=== PATIENT | female | born 1995 | race Caucasian/White ===

== ENCOUNTER 2020-07-11 07:01 | Emergency (ER) | payer MEDICAID, SELFPAY ==
--- NOTE | ~2020-07-11 | CT_ITS ---
EXAMINATION: CT ABDOMEN AND PELVIS WITHOUT CONTRAST CLINICAL INFORMATION: Epigastric pain, evaluate for colitis COMPARISON: None TECHNIQUE: Multidetector volumetric imaging was performed from the superior aspect of the liver through the pubic symphysis. Sagittal and coronal reformatted images were obtained on the technologist's workstation. This CT examination was performed using dose optimization techniques as appropriate, variously including the following: *Automated exposure control *Adjustment of mA and/or kV according to patient size (this includes techniques or standardized protocols for targeted exams where dose is matched to indication/reason for exam; i.e. extremities or head) *Use of iterative reconstruction technique DLP: 827 mGy-cm FINDINGS: LUNG BASES: The visualized lung bases are unremarkable. LIVER, GALLBLADDER, AND BILIARY TREE: The liver is normal in size, shape, and attenuation. No focal hepatic lesion or biliary ductal dilatation is present. The gallbladder is unremarkable with no evidence of radiopaque gallstones, gallbladder wall thickening, or obvious pericholecystic inflammatory changes. PANCREAS: Unremarkable. SPLEEN: Unremarkable. ADRENAL GLANDS: Unremarkable. KIDNEYS AND URETERS: The kidneys are normal in size, shape, and attenuation. No hydronephrosis, hydroureter, or calculi seen. No perinephric stranding. BLADDER: Unremarkable. GASTROINTESTINAL TRACT: The stomach and small bowel are not dilated. No pericolonic inflammatory changes. 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 ABDOMINAL WALL: No significant hernia is appreciated. LYMPH NODES: Normal. VASCULAR: Unremarkable. PELVIC VISCERA: The uterus and adnexa are unremarkable. OSSEOUS STRUCTURES: No acute or suspicious osseous abnormality. CT/CT abdomen pelvis wo con IMPRESSION: No acute intra-abdominal or intrapelvic pathology. No evidence for colitis. Postsurgical changes from appendectomy.
--- NOTE | ~2020-07-11 | US_ITS ---
EXAMINATION: US ABDOMEN COMPLETE CLINICAL INFORMATION: Abdominal pain. Evaluate for gallstone.. COMPARISON: Abdomen ultrasound from 08/22/2018 TECHNIQUE: Real-time imaging of the abdominal viscera. FINDINGS: PANCREAS: Normal. ABDOMINAL AORTA: The proximal, mid, and distal segments are normal in caliber. INFERIOR VENA CAVA: Visualized portions are normal. LIVER: Normal. The liver has normal size, contour and echotexture. No focal hepatic lesion or intrahepatic bile duct dilatation. Color Doppler images show normal flow direction in the main portal vein. GALLBLADDER: Normal. The gallbladder is physiologically distended without evidence of stones, sludge, polyps, wall thickening or pericholecystic fluid. COMMON BILE DUCT: Normal in caliber measuring 0.2 cm in diameter. RIGHT KIDNEY: Normal. No hydronephrosis. No renal calculi or focal parenchymal lesions. The kidney measures approximately 12.6 cm in maximum dimension. LEFT KIDNEY: Normal. No hydronephrosis. No renal calculi or focal parenchymal lesions. The kidney measures approximately 11 cm in maximum dimension. SPLEEN: Normal. The spleen measures 9.4 cm in maximum dimension. FREE FLUID: None. US/US abdomen complete IMPRESSION: Normal ultrasound examination of the abdomen. No evidence of cholelithiasis or cholecystitis.
[2020-07-11 07:31] VITALS: BP 136/81; PULSE 68; RESP 16; TEMP 36.6; O2SAT 99; BMI 36.3
--- NOTE | 2020-07-11 07:33 | ED.ABDPAIN ---
HPI - Abdominal Pain General Chief Complaint: General Medical Stated Complaint: ABD PAIN Time Seen by Provider: 07/11/20 07:24 History of Present Illness HPI narrative: This is a 25 years old female presented to the ED with a chief complaint of epigastric abdominal pain, burning in the epigastrium, inability to eat and drink. She has history of anxiety, he had an appendectomy in the past. She denies any diarrhea fever vomiting. Symptoms started about 3 days ago Onset (ago): day(s) (3) Location: epigastric Quality: cramping Radiation: epigastric Associated symptoms: denies other symptoms Related Data Previous Rx's Medication Instructions Recorded omeprazole magnesium [Prilosec] 20 mg PO DAILY #30 ea 07/11/20 Allergies Allergy/AdvReac Type Severity Reaction Status Date / Time ibuprofen [IBUPROFEN] Allergy Intermediate NAUSEA & Unverified 12/25/19 16:27 VOMITING pollen extracts [POLLEN] Allergy Unknown ITCHY EYES Unverified 12/25/19 16:27 Review of Systems Review of Systems Yes all other systems are reviewed and are negative Cardiovascular: Denies chest pain Respiratory: Reports no additional respiratory complaints and Denies chest congestion Gastrointestinal: Denies belching, Denies melena, Denies change in stool character and Denies coffee ground emesis Reports system reviewed and no additional complaints, except as documented Psychiatric: Reports anxiety Physical Exam Vital Signs: Vital Signs: Last Vital Signs Temp 97.7 F 07/11/20 10:13 Pulse 50 07/11/20 10:13 Resp 16 07/11/20 10:13 BP 110/55 L 07/11/20 10:13 Pulse Ox 98 07/11/20 10:13 Body Mass Index 36.3 She looks well she is not in distress she is anxious Const: Orientation/consciousness: oriented to person, oriented to place, oriented to time and patient oriented x3 HENMT: Head: Yes normal to inspection Eyes: General: appearance normal, both eyes and all related structures Neck: Neck: Yes normal visual inspection, Yes full ROM and Yes no lymphadenopathy Chest: Chest palpation & inspection: normal inspection of the chest Resp: Auscultation: clear to auscultation bilaterally Cardio: Jugular venous distension: no JVD Rate: regular rate Rhythm: regular rhythm GI: Palpation (GI): Soft to palpation, not firm, nontender and no guarding Skin: General skin exam: no rashes or lesions noted, elasticity normal and turgor normal Neuro: General: oriented to person, oriented to place, oriented to time and patient oriented x3 Psych: Other: Anxious appearing Course Course Course Narrative: At this time the patient is feeling much better she is tolerating p.o. well a CT scan of the abdomen is negative with ultrasound shows no gallstones labs within normal limit she is okay to be discharged with follow-up with the primary care physician I will send her home on [facility] - Abdominal Pain Lab Data Result diagrams: 07/11/20 07:46 07/11/20 07:46 Labs: Lab Results 07/11/20 07/11/20 07/11/20 Range/Units 07:30 07:46 07:46 WBC 8.5 (4.8-10.8) X10*3/uL RBC 4.86 (4.20-5.50) X10*6/uL Hgb 13.4 (12.0-16.0) g/dl Hct 41.2 (37-47) % MCV 84.8 (80-98) fL MCH 27.6 (27.0-33.0) pg MCHC 32.5 (31.0-35.0) g/dl RDW 12.8 (11.0-16.0) % Plt Count 372 (160-400) X10*3/uL MPV 10.1 (9.4-12.3) fL Immature Gran % (Auto) 0.2 (0.0-0.4) % Neut % (Auto) 74.8 H (45-73) % Lymph % (Auto) 19.6 L (20-40) % Sanders % (Auto) 4.4 (2-11) % Eos % (Auto) 0.5 (0-4) % Baso % (Auto) 0.5 (0-2) % Lymph # (Auto) 1.7 (1.2-4.9) X10*3/uL Sanders # (Auto) 0.4 (0.1-1.2) X10*3/uL Eos # (Auto) 0.0 (0.0-0.4) X10*3/uL Baso # (Auto) 0.0 (0.0-0.2) X10*3/uL Abs Immat Gran (auto) 0.02 (0.00-0.03) X10*3/uL Absolute Neuts (auto) 6.4 (2.0-8.3) X10*3/uL Absolute Nucleated RBC 0.000 (0.0-0.012) X10*3/uL Nucleated RBC % (auto) 0.0 (0.0-0.2) /100WBC Sodium 141 (135-145) mmol/L Potassium 3.9 (3.3-5.1) mmol/L Chloride 107 (96-108) mmol/L Carbon Dioxide 22 (22-29) mmol/L Anion Gap 16 (12-20) BUN 7 L (9-16) mg/dL Creatinine 0.71 (0.5-1.4) mg/dL Estim Creat Clear Calc 136.3 Estimated GFR > 60 Random Glucose 121 H (60-115) mg/dL Calcium 8.9 (8.4-10.2) mg/dL Total Bilirubin 0.7 (0.0-1.0) mg/dL AST 12 (5-31) U/L ALT 12 (0-31) U/L Alkaline Phosphatase 83 (39-117) U/L Total Protein 7.4 (6.5-8.0) g/dL Albumin 4.3 (3.5-5.0) g/dL Lipase 4 L (8-78) U/L Beta HCG, Quant < 2 mIU/mL Urine Color YELLOW Urine Appearance HAZY Urine pH 7.0 (5.0-8.0) Ur Specific [place] 1.025 (1.005-1.025) Urine Protein NEG (NEG-TRACE) MG/DL Urine Glucose (UA) NEG (NEG) MG/DL Urine Ketones 40 (NEG) MG/DL Urine Blood NEG (NEG) Urine Nitrite NEG (NEG) Ur Leukocyte Esterase NEG (NEG) Urine RBC 0 (0) /HPF Urine WBC 0-2 (0-4) /HPF Ur Squamous Epith Cells 1+ /LPF Urine Bacteria NONE /LPF Urine Mucus 1+ /LPF Discharge Plan Discharge Clinical Impression: Vomiting, Epigastric abdominal pain Patient Disposition: Home, Self-Care Instructions: Epigastric Pain (ED) Prescriptions: New Prilosec 10 mg susp,delayed release for recon 20 mg PO DAILY Qty: 30 RF: 0 Referrals: Daniella Rocha MD [Primary Care Provider] - 2 days Starr Velásquez MD [Physician] - 1 week Interventions: ED Discharge Assessment Last Done: 07/11/20 10:51 Discharge Date/Time: 07/11/20 11:00 [facility] Social History Social History Alcohol intake: never Smoking Status: Current some day smoker Use of substances other than those prescribed or required for medical reasons: Yes Substance Use Type: Marijuana Substance Use Frequency: Daily Advance Directives: Yes Advance Directives Information Provided: Yes Advance Directives on File: No
[2020-07-11 07:45] LABS: Glucose Urine UA NEG (NEG); Leukocyte Esterase Urine NEG (NEG); Nitrite Urine NEG (NEG); Specific Gravity - Urine 1.025 (1.005-1.025); Urine Blood NEG (NEG); Urine Ketones 40 MG/DL (NEG); Urine Protein NEG (NEG-TRACE)
[2020-07-11 07:49] LABS: Appearance Urine HAZY; Color Urine YELLOW
[2020-07-11] MEDS: LORazepam 2 MG/ML VIAL 1 MG IVPUSH (07:53)
[2020-07-11 07:55] LABS: Mucus Urine 1+ /LPF; RBC Urine 0 /HPF (0); Squamous Epithelial Cell Urine 1+ /LPF; WBC Urine 0-2 /HPF (0-4)
[2020-07-11] MEDS: 0.9 % Sodium Chloride 1,000 ML 999 ML IVCONT (07:56)
[2020-07-11] MEDS: Famotidine/PF 20 MG/2 ML VIAL IVPUSH (07:56)
[2020-07-11] MEDS: ondansetron HCL 4 MG/2 ML VIAL IVPUSH (08:01)
[2020-07-11 08:04] LABS: MANUAL DIFF FLAG NO
[2020-07-11 08:06] LABS: Basophils Percent Auto 0.5 % (0-2); Eosinophils Percent Auto 0.5 % (0-4); Hematocrit 41.2 % (37-47); Hemoglobin 13.4 g/dl (12.0-16.0); Imm Gran Abs Auto 0.02 X10*3/uL (0.00-0.03); Imm Gran Pct Auto 0.2 % (0.0-0.4); Lymphocytes Absolute Auto 1.7 X10*3/uL (1.2-4.9); Lymphocytes Percent Auto 19.6 % (20-40); Mean Corpuscular HGB Conc 32.5 g/dl (31.0-35.0); Mean Corpuscular Hemoglobin 27.6 pg (27.0-33.0); Mean Corpuscular Volume 84.8 fL (80-98); Mean Platelet Volume 10.1 fL (9.4-12.3); Monocytes Absolute Auto 0.4 X10*3/uL (0.1-1.2); Monocytes Percent Auto 4.4 % (2-11); Neutrophils Absolute Auto 6.4 X10*3/uL (2.0-8.3); Neutrophils Percent Auto 74.8 % (45-73); Platelet Count 372 X10*3/uL (160-400); Red Blood Count 4.86 X10*6/uL (4.20-5.50); Red Cell Distribution Width 12.8 % (11.0-16.0); White Blood Count 8.5 X10*3/uL (4.8-10.8)
[2020-07-11] MEDS: Magnesium Hydrox/Alum Hydrox 30 ML ORAL.SUSP PO (08:23)
[2020-07-11] MEDS: Omeprazole 20 MG CAPSULE.DR PO (08:30)
[2020-07-11 08:34] LABS: Alanine Aminotransferase 12 U/L (0-31); Albumin Level 4.3 g/dL (3.5-5.0); Alkaline Phosphatase 83 U/L (39-117); Anion Gap 16 (12-20); Aspartate Amino Transferase 12 U/L (5-31); Bilirubin Total 0.7 mg/dL (0.0-1.0); Blood Urea Nitrogen 7 mg/dL (9-16); Calcium 8.9 mg/dL (8.4-10.2); Carbon Dioxide 22 mmol/L (22-29); Chloride 107 mmol/L (96-108); Creatinine Clr Calc Pharmacy 136.3; Estimated Glomerular Filt Rate > 60; Glucose Random 121 mg/dL (60-115); Lipase 4 U/L (8-78); Potassium 3.9 mmol/L (3.3-5.1); Sodium 141 mmol/L (135-145); Total Protein 7.4 g/dL (6.5-8.0)
[2020-07-11 08:39] LABS: HCG Quantitative < 2 mIU/mL
[2020-07-11 10:13] VITALS: BP 110/55; PULSE 50; RESP 16; TEMP 36.5; O2SAT 98
== END 2020-07-11 11:00 | disposition home or self-care (01) ==
PROVIDERS: Emergency Provider Emergency Medicine; PCP Internal Medicine
DX: R11.10 Vomiting, unspecified (principal); R10.13 Epigastric pain; F12.90 Cannabis use, unspecified, uncomplicated; F17.200 Nicotine dependence, unspecified, uncomplicated
CPT/HCPCS: 36415; 74176; 76700; 80053; 81001; 83690; 84702; 85025; 96361; 96374; 96375; 99284; 99285; J2060; J2405

== ENCOUNTER 2020-07-28 09:30 | Emergency (ER) | payer MEDICAID, SELFPAY ==
--- NOTE | ~2020-07-28 | XR_ITS ---
EXAMINATION: XR HAND, RIGHT CLINICAL INFORMATION: Trauma, pain COMPARISON: None TECHNIQUE: PA, lateral, and oblique views of the right hand. FINDINGS: There is an oblique fracture involving the neck and head fourth finger middle phalanx extending to the DIP joint. There is no dislocation or destructive process. No significant angulation or displacement on the AP view. There may be mild dorsal angulation on the lateral view. The remainder of the bony structures appear intact. XR/XR hand RT 2V IMPRESSION: Intra-articular fracture neck and head fourth finger middle phalanx. No dislocation.
[2020-07-28 10:54] VITALS: BP 128/65; PULSE 64; RESP 18; TEMP 36.9; O2SAT 99; BMI 36.8
[2020-07-28] MEDS: Acetaminophen 325 MG TABLET 650 MG PO (10:58)
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
== END 2020-07-28 12:17 | disposition home or self-care (01) ==
PROVIDERS: Emergency Provider Emergency Medicine; PCP Internal Medicine
DX: S62.654A Nondisplaced fracture of middle phalanx of right ring finger, initial encounter for closed fracture (principal); W51.XXXA Accidental striking against or bumped into by another person, initial encounter; Y93.89 Activity, other specified; Y92.9 Unspecified place or not applicable; Y99.9 Unspecified external cause status
CPT/HCPCS: 29130; 73120; 99283

== ENCOUNTER 2020-07-29 17:13 | Outpatient (REF) | payer MEDICAID, SELFPAY ==
--- NOTE | ~2020-07-29 | XR_ITS ---
EXAMINATION: XR HAND, RIGHT CLINICAL INFORMATION: Pain COMPARISON: Previous x-ray July 2020 TECHNIQUE: PA, lateral, and oblique views of the right hand. FINDINGS: There is an oblique fracture of the middle phalanx of the fourth finger intra-articular with the DIP joint. Alignment is unchanged. No other fracture is seen. There is surrounding soft tissue swelling. XR/XR hand RT min 3V IMPRESSION: No change in fracture of the middle phalanx of the right fourth finger.
== END 2020-07-29 17:14 | disposition home or self-care (01) ==
LOC: HO.HOSX 17:13
PROVIDERS: Visit Provider Orthopaedic Surgery
DX: Z13.89 Encounter for screening for other disorder (principal)

== ENCOUNTER → 2020-08-02 08:39 | Outpatient (BNVA) | payer MEDICAID, SELFPAY | PROVIDERS: PCP Internal Medicine; Visit Provider Orthopaedic Surgery | DX: S62.624A Displaced fracture of middle phalanx of right ring finger, initial encounter for closed fracture (principal) | CPT/HCPCS: 73130; 99202 ==

== ENCOUNTER 2020-08-05 07:02 | Day surgery (SDC) | payer MEDICAID, SELFPAY ==
[2020-08-05] VITALS (8 sets, daily range): BP systolic 112–129; BP diastolic 44–87; PULSE 56–94; RESP 16–17; TEMP 36.3–36.8; O2SAT 96–99; BMI 35.7
--- NOTE | ~2020-08-05 | FL_ITS ---
EXAMINATION: XR FLUOROSCOPY WITH IMAGES CLINICAL INFORMATION: ORIF right fourth finger fracture COMPARISON: Previous x-ray July 28 and 08/02/2020 TECHNIQUE: Fluoroscopy performed by Dr. Caballero. Fluoroscopy time: 45 seconds DAP: [id number] Images: 6 FINDINGS: There is a an oblique fracture of the middle phalanx. There are 2 K wires or pins seen in the middle and distal phalanx of the fourth finger across the DIP joint. FL/FL guidance in OR IMPRESSION: Fluoroscopic guidance for ORIF of right fourth finger fracture.
[2020-08-05 07:53] LABS: UPreg QC Valid YES
[2020-08-05 07:56] LABS: Urine Pregnancy NEGATIVE (NEGATIVE)
[2020-08-05] MEDS: Lactated Ringers 1,000 ML 50 ML IV (08:20)
--- NOTE | 2020-08-05 09:30 | MHC.SHP ---
Pre-Procedural Eval Section B Chief Complaint: fx right ring finger Allergies: Allergies Allergy/AdvReac Type Severity Reaction Status Date / Time pollen extracts [POLLEN] Allergy Unknown ITCHY EYES Verified 08/02/20 08:42 ibuprofen [IBUPROFEN] AdvReac Mild Heartburn Verified 08/02/20 08:42 Plan I have reviewed the history and physical and performed a pertinent physical examination on my patient. No changes have occurred unless specified.
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
[2020-08-05] MEDS: fentaNYL citrate/PF 100 MCG/2 ML VIAL 25 MCG IVPUSH (10:55)
[2020-08-05] MEDS: Acetaminophen 325 MG TABLET 650 MG PO (10:55)
[2020-08-05] MEDS: oxyCODONE HCl Immed Release 5 MG TABLET PO (10:56)
== END 2020-08-05 12:02 | disposition home or self-care (01) ==
LOC: HO.SSS 07:03
PROVIDERS: Anesthesiology; PCP Internal Medicine; Visit Provider Orthopaedic Surgery
PROC: (CPT 26727; principal; 2020-08-05 09:00)
DX: S62.624A Displaced fracture of middle phalanx of right ring finger, initial encounter for closed fracture (principal); Y04.0XXA Assault by unarmed brawl or fight, initial encounter; Y93.89 Activity, other specified; Y92.9 Unspecified place or not applicable; Y99.8 Other external cause status; Z88.8 Allergy status to other drugs, medicaments and biological substances; F12.90 Cannabis use, unspecified, uncomplicated
CPT/HCPCS: 26727; 81025; J0690; J2250; J2405; J3010

== ENCOUNTER → 2020-08-11 15:12 | Outpatient (BNVA) | payer MEDICAID, SELFPAY | PROVIDERS: PCP Internal Medicine; Visit Provider Orthopaedic Surgery | DX: S62.624D Displaced fracture of middle phalanx of right ring finger, subsequent encounter for fracture with routine healing (principal) | CPT/HCPCS: 99212 ==

== ENCOUNTER 2020-08-31 08:50 | Outpatient (REF) | payer MEDICAID, SELFPAY ==
--- NOTE | ~2020-08-31 | XR_ITS ---
EXAMINATION: XR HAND, RIGHT CLINICAL INFORMATION: Right hand pain. COMPARISON: Most recent right hand radiographs dated 08/02/2020. TECHNIQUE: PA, lateral, and oblique views of the right hand. FINDINGS: Orthopedic pins through the 4th mid and distal phalanx across the previously seen 4th middle phalangeal fracture. Fracture in near-anatomic alignment with interval new bone/callus formation. No hardware fracture. No perihardware lucency to suggest loosening or infection. XR/XR hand RT min 3V IMPRESSION: Orthopedic pins through the 4th middle phalangeal fracture which is in near-anatomic alignment with interval new bone/callus formation. No hardware complication.
== END 2020-08-31 08:51 | disposition home or self-care (01) ==
LOC: HO.HOSX 08:50
PROVIDERS: Visit Provider Orthopaedic Surgery
DX: S62.624A Displaced fracture of middle phalanx of right ring finger, initial encounter for closed fracture (principal)
CPT/HCPCS: 73130; 99212

== ENCOUNTER 2020-10-04 09:32 | Outpatient (REF) | payer MEDICAID, SELFPAY | END 2020-10-04 09:33 | disposition home or self-care (01) | LOC: HO.HOSX 09:32 | PROVIDERS: Visit Provider Orthopaedic Surgery | DX: Z13.89 Encounter for screening for other disorder (principal) ==

== ENCOUNTER 2021-03-05 13:43 | Emergency (ER) | payer MEDICAID, SELFPAY ==
[2021-03-05 13:59] VITALS: BP 115/75; PULSE 72; RESP 18; TEMP 36.6; O2SAT 100; BMI 36.8
--- NOTE | 2021-03-05 14:52 | ED.GENADULT ---
HPI - General Adult General Chief complaint: General Medical Stated complaint: body and head aches exposed to covid Time Seen by Provider: 03/05/21 14:26 Source: patient and family Mode of arrival: ambulatory Limitations: no limitations History of Present Illness MD complaint: COVID exposure Onset (ago): day(s) (2) Severity: mild Quality: aching Pain Consistency: intermittent Relieving factors: none Exacerbating factors: none Associated symptoms: headaches and other (myalgias) Treatments prior to arrival: none Related Data Previous Rx's Medication Instructions Recorded omeprazole magnesium 10 mg oral 20 mg PO DAILY #30 ea 07/11/20 suspension,delayed release (Prilosec) acetaminophen 325 mg capsule 650 mg PO Q6H PRN 7 Days #56 cap 07/28/20 oxycodone-acetaminophen 5 mg-325 1 tab PO Q6H PRN #15 tab 08/05/20 mg tablet Allergies Allergy/AdvReac Type Severity Reaction Status Date / Time pollen extracts [POLLEN] Allergy Unknown ITCHY EYES Verified 08/31/20 12:42 ibuprofen [IBUPROFEN] AdvReac Mild Heartburn Verified 08/31/20 12:42 Review of Systems Review of Systems: Constitutional : no Fever, no Chills, no fatigue, no Malaise ENT/Mouth : no sore throat, positive runny nose Eyes: No Discharge Cardiovascular : No Chest Pain, No SOB Respiratory : No Cough, No Sputum Gastrointestinal : No Nausea, No Vomiting, No Diarrhea Genitourinary : No Dysuria, No Urinary Frequency Musculoskeletal : positive Myalgia Skin : No rash Neuro : No Headache PMFSH Past Medical History Medical History No known health problems Surgical History History of appendectomy Previous section Social History Social History Alcohol intake: never Substance Use Type: Marijuana Advance Directives: No Advance Directives Information Provided: No Patient : No 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 Oriented X3. No acute distress. Eyes: Pupils equal, round and reactive to light. ENT: Pharynx normal. Neck: Normal inspection. Neck supple. CVS: Normal heart rate and rhythm. Pulses normal. Respiratory: No respiratory distress. Breath sounds normal. Abdomen: Soft and non-tender. Skin: Skin warm and dry. Normal skin color. Extremities: No lower extremity edema. Neuro: Oriented X 3. No motor deficit. No sensory deficit. Medical Decision Making MDM Narrative Medical decision making narrative: 25 yo female with body aches and headaches COVID exposure - not toxic, vaccinated x 1 looks well will COVID test and send home with precautions Lab Data Labs: Lab Results 03/05/21 Range/Units 14:44 COVID-19 ([facility]) Negative (Negative) COVID-19 Clin Com See Note Discharge Plan Discharge Clinical Impression: Close exposure to 2019-nCoV Patient Disposition: Home, Self-Care Instructions: COVID-19 (Coronavirus Disease 2019) (ED) Additional Instructions: return to ED for any worsening symptoms or concerns COVID negative today Prescriptions: No Action Prilosec 10 mg susp,delayed release for recon 20 mg PO DAILY Qty: 30 RF: 0 acetaminophen 325 mg capsule 650 mg PO Q6H PRN (Reason: pain) 7 Days Qty: 56 RF: 0 oxycodone-acetaminophen 5-325 mg tablet 1 tab PO Q6H PRN (Reason: pain) Qty: 15 RF: 0 Stand Alone Forms: Work/School Release
[2021-03-05 15:09] LABS: COVID-19 Test Negative (Negative); IDNOW Serial# 9DD0AD1C
== END 2021-03-05 15:36 | disposition home or self-care (01) ==
LOC: HO.ED 15:22
PROVIDERS: Emergency Provider Emergency Medicine; PCP Internal Medicine
DX: R51.9 Headache, unspecified (principal); Z20.822 Contact with and (suspected) exposure to COVID-19
CPT/HCPCS: 36415; 87635; 99283

== ENCOUNTER 2021-03-20 19:37 | Emergency (ER) | payer MEDICAID, SELFPAY ==
--- NOTE | ~2021-03-20 | XR_ITS ---
EXAMINATION: XR FOOT, RIGHT CLINICAL INFORMATION: Toe swelling pain COMPARISON: None TECHNIQUE: AP, lateral, and oblique views of the right foot. FINDINGS: The bones and soft tissues are normal. No fracture. Alignment is anatomic. Joint spaces are maintained. XR/XR foot RT 2V IMPRESSION: Normal right foot.
[2021-03-20 19:59] VITALS: BP 120/69; PULSE 74; RESP 17; TEMP 37.1; O2SAT 100; BMI 35.7
[2021-03-20] MEDS: oxyCODONE HCl Immed Release 5 MG TABLET PO (22:27)
--- NOTE | 2021-03-20 22:45 | ED.LOWEXIN ---
HPI - Extremity Injury (Lower) General Chief Complaint: Extremity Injury, Lower Stated Complaint: ?broken toe rt foot Time Seen by Provider: 03/20/21 21:50 Source: patient Mode of arrival: ambulatory Limitations: no limitations History of Present Illness HPI Narrative: 25-year-old female presents to the ED for right 3rd toe pain. She states yesterday while trying to pull pants on she kicked her foot onto the wall and since then has had pain. Patient denies falling to the ground or any other trauma. Patient states 3rd toe is is bruised Related Data Previous Rx's Medication Instructions Recorded omeprazole magnesium 10 mg oral 20 mg PO DAILY #30 ea 07/11/20 suspension,delayed release (Prilosec) acetaminophen 325 mg capsule 650 mg PO Q6H PRN 7 Days #56 cap 07/28/20 oxycodone-acetaminophen 5 mg-325 1 tab PO Q6H PRN #15 tab 08/05/20 mg tablet oxycodone-acetaminophen 5 mg-325 1 tab PO TID PRN #9 tab 03/20/21 mg tablet (Percocet) Allergies Allergy/AdvReac Type Severity Reaction Status Date / Time pollen extracts [POLLEN] Allergy Unknown ITCHY EYES Verified 03/20/21 20:02 ibuprofen [IBUPROFEN] AdvReac Mild Heartburn Verified 03/20/21 20:02 Review of Systems Review of Systems: Yes all other systems are reviewed and are negative Constitutional: Constitutional: Reports as per HPI and Reports no additional constitutional complaints Eyes: Eyes: Reports as per HPI and Reports no additional eye complaints ENT: Reports system reviewed and no additional complaints, except as documented and Reports as per HPI Cardiovascular: Cardiovascular: Reports as per HPI and Reports no additional cardiovascular complaints Respiratory: Respiratory: Reports as per HPI and Reports no additional respiratory complaints Gastrointestinal: Gastrointestinal: Reports as per HPI and Reports no additional gastrointestinal complaints Genitourinary: Genitourinary: Reports no additional female genitourinary complaints and Reports as per HPI Musculoskeletal: Musculoskeletal: Reports no additional musculoskeletal complaints and Reports as per HPI Comments: Toe pain Neurologic: Reports system reviewed and no additional complaints, except as documented and Reports as per HPI Psychiatric: Psychiatric: Reports no additional psychiatric complaints and Reports as per HPI PMFSH Past Medical History Medical History No known health problems Surgical History History of appendectomy Previous section Social History Social History Alcohol intake: never Substance Use Type: Marijuana Advance Directives: No Advance Directives Information Provided: No 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 Physical Exam Vital Signs: Vital Signs: Last Vital Signs Temp 98.7 F 03/20/21 19:59 Pulse 74 03/20/21 19:59 Resp 17 03/20/21 19:59 BP 120/69 03/20/21 19:59 Pulse Ox 100 03/20/21 19:59 BMI result Body Mass Index 35.7 Const: General: cooperative, healthy appearing, comfortable, no acute distress, well developed, alert, awake and Physically active HENMT: Head: Yes normal to inspection, Yes No palpable skull fracture present, Yes normocephalic, Yes atraumatic and No abrasion Eyes: General: appearance normal, both eyes and all related structures Neck: Neck: Yes normal visual inspection, Yes full ROM, Yes no lymphadenopathy, Yes no meningeal signs, Yes trachea midline, Yes supple, No anterior neck swelling and No tender Chest: Chest palpation & inspection: normal inspection of the chest and normal palpation of entire chest wall Resp: Effort & Inspection: normal respiratory effort and able to speak in complete sentences Auscultation: clear to auscultation bilaterally Cardio: Jugular venous distension: no JVD Heart sounds: S1 normal heart sound present and S2 normal heart sound present GI: Inspection: Yes normal to inspection and No abdominal wall ecchymosis Palpation (GI): Soft to palpation, not firm, nontender, no guarding and not rigid : General: No CVA tenderness and Yes no CVA tenderness Back/Spine/Pelvis: Back: no CVA tenderness, No CVA tenderness and No back tenderness Skin: General skin exam: no rashes or lesions noted and elasticity normal Neuro: General: gait normal, no meningeal signs and CN's II-XI intact bilaterally Cranial nerves: Yes CN's II-XII intact bilaterally Extrem: General: Yes normal to inspection and Yes full ROM Ankle/foot/toe images: 1. Positive for ecchymosis on palpation and tenderness. Rest of right lower extremity normal negative for signs of trauma. Right lower extremity negative for erythema, tenderness, crepitus, deformity, pus discharge, foul odor, or open wounds. Motor/neuro/vascular exam intact Psych: Appearance: grossly normal, well kempt and not disheveled Course Course Course Narrative: X-ray foot ordered Reevaluation(s) Reevaluation #1: Foot x-ray negative for any fracture. Patient placed in postop shoe and discharged with pain meds. Time: 22:49 MDM - Extremity Injury (Lower) MDM Narrative Medical decision making narrative: Toe contusion Discharge Plan Discharge Clinical Impression: Contusion of toe Patient Disposition: Home, Self-Care Instructions: Foot Contusion (ED) Additional Instructions: Return to ED for worsening pain, bluish black discoloration, swelling, redness, fever, chills, calf pain, leg swelling, pus discharge, foul odor, coolness/hardness of lower extremity, or any other concerning symptoms. Please follow-up with primary care provider. Prescriptions: New oxycodone-acetaminophen [Percocet] 5-325 mg tablet 1 tab PO TID PRN (Reason: pain) Qty: 9 RF: 0 No Action Prilosec 10 mg susp,delayed release for recon 20 mg PO DAILY Qty: 30 RF: 0 acetaminophen 325 mg capsule 650 mg PO Q6H PRN (Reason: pain) 7 Days Qty: 56 RF: 0 oxycodone-acetaminophen 5-325 mg tablet 1 tab PO Q6H PRN (Reason: pain) Qty: 15 RF: 0 Stand Alone Forms: Work/School Release Interventions: ED Discharge Assessment Last Done: 03/20/21 23:18 Discharge Date/Time: 03/20/21 23:19 Print Language: Chinese
== END 2021-03-20 23:19 | disposition home or self-care (01) ==
PROVIDERS: Emergency Provider Internal Medicine; PCP Internal Medicine
DX: S90.121A Contusion of right lesser toe(s) without damage to nail, initial encounter (principal); W22.09XA Striking against other stationary object, initial encounter; Y93.89 Activity, other specified; Y92.032 Bedroom in apartment as the place of occurrence of the external cause; Y99.9 Unspecified external cause status
CPT/HCPCS: 73620; 99283; 99284

== ENCOUNTER 2021-09-22 10:59 | Emergency (ER) | payer MEDICAID, SELFPAY ==
--- NOTE | ~2021-09-22 | CT_ITS ---
EXAMINATION: CT ABDOMEN AND PELVIS WITHOUT CONTRAST CLINICAL INFORMATION: Abdominal pain. COMPARISON: CT scan of the abdomen and pelvis dated 07/11/2020. TECHNIQUE: Multidetector volumetric imaging was performed from the superior aspect of the liver through the pubic symphysis. Sagittal and coronal reformatted images were obtained on the technologist's workstation. Lack of intravenous and oral contrast limits visceral evaluation. This CT examination was performed using dose optimization techniques as appropriate, variously including the following: *Automated exposure control *Adjustment of mA and/or kV according to patient size (this includes techniques or standardized protocols for targeted exams where dose is matched to indication/reason for exam; i.e. extremities or head) *Use of iterative reconstruction technique DLP: 901 mGy-cm FINDINGS: LUNG BASES: The visualized lung bases are unremarkable. LIVER, GALLBLADDER, AND BILIARY TREE: Unremarkable. PANCREAS: Unremarkable. SPLEEN: Unremarkable. ADRENAL GLANDS: Unremarkable. KIDNEYS AND URETERS: Left kidney shows an interpolar calculus measuring 0.2 cm densities image 48, series 6). No hydroureteronephrosis bilaterally. BLADDER: Unremarkable. GASTROINTESTINAL TRACT: The stomach and small bowel unremarkable. The appendix appears surgically absent without right lower quadrant abnormality. The colon and rectum are unremarkable. ABDOMINAL WALL: No significant hernia is appreciated. LYMPH NODES: Mildly prominent ileocolic/mesenteric lymph nodes. A claim representative ileocolic lymph node measures 1.0 cm in short axis (image 31, series 6). VASCULAR: Unremarkable. PELVIC VISCERA: Retroverted/retroflexed uterus without focal abnormality. No adnexal abnormality. OSSEOUS STRUCTURES: L5-S1 is transitional with partial sacralization of L5, greater on the right side. Mild disc space narrowing versus rudimentary disc at L5-S1. CT/CT abdomen pelvis wo con IMPRESSION: 1. No acute intra-abdominal/pelvic pain to explain the patient's symptoms. Mildly prominent mesenteric lymph nodes are nonspecific, but could be reactive, but a definitive causative abnormality is not identified. 2. Nonobstructing left intrarenal calculus without other significant abnormality. Fleischner guidelines were followed.
[2021-09-22 11:02] VITALS: BP 133/90; PULSE 77; RESP 22; TEMP 36.8; O2SAT 97; BMI 38.2
--- NOTE | 2021-09-22 11:28 | ED_ITS ---
HPI - General Adult General Chief complaint: Abdominal Pain Stated complaint: lower abd pain Time Seen by Provider: 09/22/21 11:28 Source: patient Mode of arrival: ambulatory Limitations: no limitations History of Present Illness HPI narrative: Patient is a 26 year old female presenting to the emergency department today with low abdominal pain. Patient states that starting yesterday she began to have low abdominal pain that she feels around her scar. Patient states that her was years ago and she has no concern of current because she is thomas. Patient denies any dizziness, lightheadedness, nausea, vomiting, fever, chills, blurry vision, double vision, loss of vision, chest pain, difficulty breathing, shortness of breath, back pain, night sweats, pain with urination, increased urinary frequency, increased urinary urgency, blood in her urine or stool, syncope or a near syncopal episode, recent trauma or falls, bowel incontinence, bladder incontinence, bowel retention, bladder retention, or any other complaints at this time. Patient states that she has had an appe ndectomy. Onset (ago): day(s) (1) Location: abdomen Radiation: abdomen Severity: mild Severity scale (1-10): 3 Quality: dull Pain Consistency: constant Relieving factors: none Exacerbating factors: none Associated symptoms: denies other symptoms Treatments prior to arrival: none Related Data Previous Rx's Medication Instructions Recorded omeprazole magnesium 10 mg oral 20 mg PO DAILY #30 ea 07/11/20 suspension,delayed release (Prilosec) acetaminophen 325 mg capsule 650 mg PO Q6H PRN pain 7 days #56 07/28/20 caps oxycodone-acetaminophen 5 mg-325 1 tab PO Q6H PRN pain #15 tabs 08/05/20 mg tablet oxycodone-acetaminophen 5 mg-325 1 tab PO TID PRN pain #9 tabs 03/20/21 mg tablet (Percocet) Allergies Allergy/AdvReac Type Severity Reaction Status Date / Time pollen extracts [POLLEN] Allergy Unknown ITCHY EYES Verified 03/20/21 20:02 ibuprofen [IBUPROFEN] AdvReac Mild Heartburn Verified 03/20/21 20:02 Review of Systems Constitutional: Constitutional: Reports no additional constitutional complaints, Denies chills, Denies fever(s) and Denies night sweats Eyes: Eyes: Reports no additional eye complaints, Denies blurry vision, Denies change in vision, Denies diplopia, Denies eye discharge, Denies loss of vision and Denies eye pain ENT: Denies dizziness Cardiovascular: Cardiovascular: Reports no additional cardiovascular complaints, Denies chest pain, Denies lightheadedness, Denies Loss of Consciousness and Denies dyspnea Respiratory: Respiratory: Reports no additional respiratory complaints and Denies dyspnea Gastrointestinal: Gastrointestinal: Reports no additional gastrointestinal complaints, Reports abdominal pain, Denies melena, Denies hematochezia, Denies change in bowel habits and Denies change in stool character Genitourinary: Genitourinary: Denies hematuria, Denies urinary frequency, Denies dysuria, Denies urinary incontinence, Denies urinary hesitancy and Denies urinary urgency Musculoskeletal: Musculoskeletal: Reports no additional musculoskeletal complaints, Denies numbness and Denies tingling Neurologic: Denies dizziness, Denies loss of vision, Denies numbness and Denies tingling Psychiatric: Psychiatric: Reports no additional psychiatric complaints Endocrine: Endocrine: Reports no additional endocrine complaints Hematologic/Lymphatic: Hematologic/Lymphatic: Reports no additional hematologic/lymphatic complaints Allergic/Immunologic: Allergic/Immunologic: Reports no additional allergic/immunologic complaints [facility] Past Medical History Attestation statement: The following information was validated with the patient. 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 Physical Exam ED Vital Signs: Vital Signs - 24 hr 09/22/21 11:02 09/22/21 11:40 09/22/21 13:57 Temperature 98.3 F Pulse Rate 77 72 68 Respiratory Rate 22 H 20 16 Blood Pressure 133/90 H 139/89 137/71 Pulse Oximetry 97 99 Oxygen Delivery Method Room Air Room Air Room Air 09/22/21 16:01 Temperature 98.2 F Pulse Rate 60 Respiratory Rate 18 Blood Pressure 140/70 H Pulse Oximetry 98 Oxygen Delivery Method Room Air BMI result Body Mass Index 38.2 Const General: cooperative, no acute distress, alert and awake Nutritional Appearance: well nourished Orientation/consciousness: patient oriented x3 Limitations: no limitations HENMT Head: Yes normal to inspection and Yes atraumatic Ears: hearing grossly normal bilaterally and external ears normal General nose exam: Normal external nose present, no nasal discharge noted and no epistaxis Face and sinus: Yes normal facial exam, No abrasion and No laceration Mouth: Normal oral and palatal mucosa present, no drooling and no muffled voice Eyes General: appearance normal, both eyes and all related structures Periorbital: periorbital findings normal Eyelids: Yes eyelids normal Conjunctivae: conjunctivae normal Pupils: Equal, round and reactive pupils present EOM: EOMs intact bilaterally Neck Neck: Yes normal visual inspection, Yes full ROM and Yes no lymphadenopathy Chest Chest palpation & inspection: normal inspection of the chest Resp Effort & Inspection: normal respiratory effort and able to speak in complete sentences Auscultation: clear to auscultation bilaterally Cardio Rate: regular rate Rhythm: regular rhythm GI Inspection: Yes normal to inspection Palpation (GI): Soft to palpation, not firm, nontender, no guarding and not rigid Neuro General: patient oriented x3 and moves all extremities Cranial nerves: Yes Equal, round and reactive pupils present Cognition (Neuro): normal cognition Motor exam (neuro): 5/5 motor strength present throughout Sensory Exam: Normal double simultaneous stimulation for sensation Coordination: [id number]-ab-[id number] test normal Extrem General: Yes normal to inspection, Yes full ROM and Yes capillary refill normal Psych Appearance: grossly normal Mental Status: mental status grossly normal Affect: normal affect Attitude: cooperative Thought process: Normal thought process present Thought content: Normal thought content present Insight: Good insight present (Psych) Medical Decision Making MDM Narrative Medical decision making narrative: Patient is a 26 year old female presenting to the emergency department today with abdominal pain. Patient's physical exam was unremarkable. Patient's blood work was unremarkable. Patient's urine showed no acute process. Patient's abdominal CT showed no renal calculi. I explained my physical exam findings as well as all test results to the patient. I answered all questions asked by the patient. Patient received IV Morphine and Zofran which she stated helped her symptoms significantly. I stressed the importance of the patient taking her medication as prescribed. I stressed the importance of the patient following up with her primary care provider. I stressed the importance of the patient returning to the emergency department immediately if her symptoms were to worsen or if she were to develop any dizziness, shortness of breath, difficulty breathing, chest pain, blurry vision, loss of vision, nausea, vomiting, abdominal pain, fever, chills, back pain, or any other complaints. Patient verbalized agreement and understanding with this treatment plan and discharge. Differential Diagnosis Differential Diagnosis: renal calculi, abdominal pain Medical Records Medical records reviewed: Yes I reviewed the patient's medical records. Lab Data Lab results reviewed: Yes I reviewed the patient's lab results. Result diagrams: 09/22/21 12:05 09/22/21 12:05 Labs: Lab Results 09/22/21 09/22/21 09/22/21 Range/Units 11:53 11:53 12:05 WBC 9.5 (4.8-10.8) X10*3/uL RBC 5.20 (4.20-5.50) X10*6/uL Hgb 14.3 (12.0-16.0) g/dl Hct 44.2 (37.0-47.0) % MCV 85.0 (80.0-98.0) fL MCH 27.5 (27.0-33.0) pg MCHC 32.4 (31.0-35.0) g/dl RDW 12.8 (11.0-16.0) % Plt Count 358 (160-400) X10*3/uL MPV 9.7 (9.4-12.3) fL Immature Gran % (Auto) 0.3 (0.0-0.4) % Neut % (Auto) 75.9 H (45-73) % Lymph % (Auto) 17.1 L (20-40) % Mccreary % (Auto) 5.9 (2-11) % Eos % (Auto) 0.5 (0-4) % Baso % (Auto) 0.3 (0-2) % Lymph # (Auto) 1.6 (1.2-4.9) X10*3/uL Mccreary # (Auto) 0.6 (0.1-1.2) X10*3/uL Eos # (Auto) 0.1 (0.0-0.4) X10*3/uL Baso # (Auto) 0.0 (0.0-0.2) X10*3/uL Abs Immat Gran (auto) 0.03 (0.00-0.03) X10*3/uL Absolute Neuts (auto) 7.2 (2.0-8.3) x10*3/uL Absolute Nucleated RBC 0.000 (0.0-0.012) X10*3/uL Nucleated RBC % (auto) 0.0 (0.0-0.2) /100WBC Sodium (135-145) mmol/L Potassium (3.3-5.1) mmol/L Chloride (96-108) mmol/L Carbon Dioxide (22-29) mmol/L Anion Gap (12-20) BUN (9-16) mg/dL Creatinine (0.5-1.4) mg/dL Estim Creat Clear Calc Estimated GFR Random Glucose (60-115) mg/dL Calcium (8.4-10.2) mg/dL Total Bilirubin (0.0-1.0) mg/dL AST (5-31) U/L ALT (0-31) U/L Alkaline Phosphatase (39-117) U/L Total Protein (6.5-8.0) g/dL Albumin (3.5-5.0) g/dL Urine Color Urine Appearance Urine pH (5.0-8.0) Ur Specific [place] (1.005-1.025) Urine Protein (NEG-TRACE) MG/DL Urine Glucose (UA) (NEG) MG/DL Urine Ketones (NEG) MG/DL Urine Blood (NEG) Urine Nitrite (NEG) Ur Leukocyte Esterase (NEG) Urine RBC (0) /HPF Urine WBC (0-4) /HPF Ur Squamous Epith Cells /LPF Urine Bacteria /LPF Urine Mucus /LPF COVID-19 (AROLDO) Negative (Negative) COVID-19 Clin Com See Note Influenza Type A (CROW) Negative (Negative) Influenza Type B (CROW) Negative (Negative) Influenza A & B Note See Note 09/22/21 09/22/21 Range/Units 12:05 12:38 WBC (4.8-10.8) X10*3/uL RBC (4.20-5.50) X10*6/uL Hgb (12.0-16.0) g/dl Hct (37.0-47.0) % MCV (80.0-98.0) fL MCH (27.0-33.0) pg MCHC (31.0-35.0) g/dl RDW (11.0-16.0) % Plt Count (160-400) X10*3/uL MPV (9.4-12.3) fL Immature Gran % (Auto) (0.0-0.4) % Neut % (Auto) (45-73) % Lymph % (Auto) (20-40) % M[place]reary % (Auto) (2-11) % Eos % (Auto) (0-4) % Baso % (Auto) (0-2) % Lymph # (Auto) (1.2-4.9) X10*3/uL [place] # (Auto) (0.1-1.2) X10*3/uL Eos # (Auto) (0.0-0.4) X10*3/uL Baso # (Auto) (0.0-0.2) X10*3/uL Abs Immat Gran (auto) (0.00-0.03) X10*3/uL Absolute Neuts (auto) (2.0-8.3) x10*3/uL Absolute Nucleated RBC (0.0-0.012) X10*3/uL Nucleated RBC % (auto) (0.0-0.2) /100WBC Sodium 137 (135-145) mmol/L Potassium 3.9 (3.3-5.1) mmol/L Chloride 106 (96-108) mmol/L Carbon Dioxide 23 (22-29) mmol/L Anion Gap 12 (12-20) BUN 6 L (9-16) mg/dL Creatinine 0.68 (0.5-1.4) mg/dL Estim Creat Clear Calc 150.2 Estimated GFR > 60 Random Glucose 105 (60-115) mg/dL Calcium 9.5 D (8.4-10.2) mg/dL Total Bilirubin 0.3 (0.0-1.0) mg/dL AST 13 (5-31) U/L ALT 11 (0-31) U/L Alkaline Phosphatase 92 (39-117) U/L Total Protein 7.6 (6.5-8.0) g/dL Albumin 4.3 (3.5-5.0) g/dL Urine Color YELLOW Urine Appearance HAZY Urine pH 6.0 (5.0-8.0) Ur Specific [place] >= 1.030 H (1.005-1.025) Urine Protein NEG (NEG-TRACE) MG/DL Urine Glucose (UA) NEG (NEG) MG/DL Urine Ketones 15 (NEG) MG/DL Urine Blood 1+ H (NEG) Urine Nitrite NEG (NEG) Ur Leukocyte Esterase NEG (NEG) Urine RBC 1-4 (0) /HPF Urine WBC 0 (0-4) /HPF Ur Squamous Epith Cells 1+ /LPF Urine Bacteria NONE /LPF Urine Mucus 3+ /LPF COVID-19 (AROLDO) (Negative) COVID-19 Clin Com Influenza Type A (CROW) (Negative) Influenza Type B (CROW) (Negative) Influenza A & B Note Imaging Data CT scan - abdomen: Attestation: I personally reviewed and interpreted this imaging study as follows: My impression: Renal stones Radiologist's impression: EXAMINATION: CT ABDOMEN AND PELVIS WITHOUT CONTRAST? CLINICAL INFORMATION: Abdominal pain.? COMPARISON: CT scan of the abdomen and pelvis dated 07/11/2020.? TECHNIQUE: Multidetector volumetric imaging was performed from the superior aspect of the liver through the pubic symphysis. Sagittal and coronal reformatted images were obtained on the technologist's workstation. Lack of intravenous and oral contrast limits visceral evaluation. This CT examination was performed using dose optimization techniques as appropriate, variously including the following: *Automated exposure control *Adjustment of mA and/or kV according to patient size (this includes techniques or standardized protocols for targeted exams where dose is matched to indication/reason for exam; i.e. extremities or head) *Use of iterative reconstruction technique DLP: 901 mGy-cm FINDINGS: LUNG BASES: The visualized lung bases are unremarkable.? LIVER, GALLBLADDER, AND BILIARY TREE: Unremarkable. PANCREAS: Unremarkable.? SPLEEN: Unremarkable.? ADRENAL GLANDS: Unremarkable.? KIDNEYS AND URETERS: Left kidney shows an interpolar calculus measuring 0.2 cm densities image 48, series 6). No hydroureteronephrosis bilaterally. BLADDER: Unremarkable.? GASTROINTESTINAL TRACT: The stomach and small bowel unremarkable. The appendix appears surgically absent without right lower quadrant abnormality. The colon and rectum are unremarkable. ABDOMINAL WALL: No significant hernia is appreciated.? LYMPH NODES: Mildly prominent ileocolic/mesenteric lymph nodes. A senior patient account representative ileocolic lymph node measures 1.0 cm in short axis (image 31, series 6). VASCULAR: Unremarkable. PELVIC VISCERA: Retroverted/retroflexed uterus without focal abnormality. No adnexal abnormality.? OSSEOUS STRUCTURES: L5-S1 is transitional with partial sacralization of L5, greater on the right side. Mild disc space narrowing versus rudimentary disc at L5-S1. CT/CT abdomen pelvis wo con IMPRESSION: 1. No acute intra-abdominal/pelvic pain to explain the patient's symptoms. Mildly prominent mesenteric lymph nodes are nonspecific, but could be reactive, but a definitive causative abnormality is not identified. 2. Nonobstructing left intrarenal calculus without other significant abnormality. ? Fleischner guidelines were followed. Dictated By: Gamal Gifford MD Signed By: Electronically signed by Gamal Gifford MD 09/22/21 [id number] Discharge Plan Discharge Clinical Impression: Renal calculi Patient Disposition: Home, Self-Care Instructions: Kidney Stones (ED) Additional Instructions: Follow up with your primary care provider. Return to the emergency department immediately if your symptoms worsen or if you develop any dizziness, shortness of breath, difficulty breathing, chest pain, blurry vision, loss of vision, n ausea, vomiting, abdominal pain, fever, chills, back pain, or any other complaints. Prescriptions: No Action Prilosec 10 mg susp,delayed release for recon 20 mg PO DAILY Qty: 30 0RF acetaminophen 325 mg capsule 650 mg PO Q6H PRN (Reason: pain) 7 Days Qty: 56 0RF oxycodone-acetaminophen 5-325 mg tablet 1 tab PO Q6H PRN (Reason: pain) Qty: 15 0RF oxycodone-acetaminophen [Percocet] 5-325 mg tablet 1 tab PO TID PRN (Reason: pain) Qty: 9 0RF Referrals: Daniella Rocha MD [Primary Care Provider] - Stand Alone Forms: Work/School Release Interventions: ED Discharge Assessment Last Done: 09/22/21 16:05 Discharge Date/Time: 09/22/21 16:07 Print Language: Belarusian
[2021-09-22 11:40] VITALS: BP 139/89; PULSE 72; RESP 20; O2SAT 99
[2021-09-22 12:10] LABS: MANUAL DIFF FLAG NO
[2021-09-22 12:13] LABS: Basophils Percent Auto 0.3 % (0-2); Eosinophils Absolute Auto 0.1 X10*3/uL (0.0-0.4); Eosinophils Percent Auto 0.5 % (0-4); Hematocrit 44.2 % (37.0-47.0); Hemoglobin 14.3 g/dl (12.0-16.0); Imm Gran Abs Auto 0.03 X10*3/uL (0.00-0.03); Imm Gran Pct Auto 0.3 % (0.0-0.4); Lymphocytes Absolute Auto 1.6 X10*3/uL (1.2-4.9); Lymphocytes Percent Auto 17.1 % (20-40); Mean Corpuscular HGB Conc 32.4 g/dl (31.0-35.0); Mean Corpuscular Hemoglobin 27.5 pg (27.0-33.0); Mean Platelet Volume 9.7 fL (9.4-12.3); Monocytes Absolute Auto 0.6 X10*3/uL (0.1-1.2); Monocytes Percent Auto 5.9 % (2-11); Neutrophils Absolute Auto 7.2 x10*3/uL (2.0-8.3); Neutrophils Percent Auto 75.9 % (45-73); Platelet Count 358 X10*3/uL (160-400); Red Cell Distribution Width 12.8 % (11.0-16.0); White Blood Count 9.5 X10*3/uL (4.8-10.8)
[2021-09-22 12:33] LABS: COVID-19 Test Negative (Negative); IDNOW Serial# 16C4AD1C; IDNOW Serial# 9DB6401D; Influenza A Negative (Negative); Influenza B2 Negative (Negative)
[2021-09-22 12:37] LABS: Alanine Aminotransferase 11 U/L (0-31); Albumin Level 4.3 g/dL (3.5-5.0); Alkaline Phosphatase 92 U/L (39-117); Anion Gap 12 (12-20); Aspartate Amino Transferase 13 U/L (5-31); Bilirubin Total 0.3 mg/dL (0.0-1.0); Blood Urea Nitrogen 6 mg/dL (9-16); Calcium 9.5 mg/dL (8.4-10.2); Carbon Dioxide 23 mmol/L (22-29); Chloride 106 mmol/L (96-108); Creatinine Clr Calc Pharmacy 150.2; Estimated Glomerular Filt Rate > 60; Glucose Random 105 mg/dL (60-115); Potassium 3.9 mmol/L (3.3-5.1); Sodium 137 mmol/L (135-145); Total Protein 7.6 g/dL (6.5-8.0)
[2021-09-22 12:56] LABS: Appearance Urine HAZY; Color Urine YELLOW; Glucose Urine UA NEG (NEG); Leukocyte Esterase Urine NEG (NEG); Nitrite Urine NEG (NEG); Specific Gravity - Urine >= 1.030 (1.005-1.025); UACC Culture Trigger NO; Urine Blood 1+ (NEG); Urine Ketones 15 MG/DL (NEG); Urine Protein NEG (NEG-TRACE)
[2021-09-22 13:04] LABS: Squamous Epithelial Cell Urine 1+ /LPF
[2021-09-22 13:05] LABS: Mucus Urine 3+ /LPF; WBC Urine 0 /HPF (0-4)
[2021-09-22] MEDS: Morphine Sulfate 4 MG/ML CARTRIDGE IVPUSH (13:52)
[2021-09-22] MEDS: ondansetron HCL 4 MG/2 ML VIAL IVPUSH (13:52)
[2021-09-22 13:57] VITALS: BP 137/71; PULSE 68; RESP 16
--- NOTE | 2021-09-22 14:01 | PC.NURSE ---
PT TEARFUL UPON PROVIDER REASSESSMENT. SHE WAS THEN ORDERED PAIN AND NAUSEA MEDICATION AND WAS MEDICATED CHARTED. SHE HAD VOMITED A SMALL AMOUNT OF STOMACH CONTENTS. SHE IS RESTING COMFORTABLE AT THIS TIME
[2021-09-22 16:01] VITALS: BP 140/70; PULSE 60; RESP 18; TEMP 36.8; O2SAT 98
== END 2021-09-22 16:07 | disposition home or self-care (01) ==
PROVIDERS: Physician Assistant Medical; Emergency Provider Emergency Medicine Emergency Medical Services; PCP Internal Medicine
DX: N20.0 Calculus of kidney (principal); Z20.822 Contact with and (suspected) exposure to COVID-19; R10.30 Lower abdominal pain, unspecified; F12.90 Cannabis use, unspecified, uncomplicated
CPT/HCPCS: 74176; 80053; 81001; 85025; 87502; 87635; 96374; 96375; 99283; 99284; J2270; J2405

== ENCOUNTER 2021-09-25 02:59 | Emergency (ER) | payer MEDICAID, SELFPAY ==
[2021-09-25 03:19] VITALS: BP 131/88; PULSE 87; RESP 16; O2SAT 99; BMI 38.9
[2021-09-25 03:36] LABS: Basophils Percent Auto 0.4 % (0-2); Eosinophils Absolute Auto 0.1 X10*3/uL (0.0-0.4); Eosinophils Percent Auto 1.4 % (0-4); Hematocrit 44.4 % (37.0-47.0); Hemoglobin 14.7 g/dl (12.0-16.0); Imm Gran Abs Auto 0.02 X10*3/uL (0.00-0.03); Imm Gran Pct Auto 0.2 % (0.0-0.4); Lymphocytes Absolute Auto 2.4 X10*3/uL (1.2-4.9); Lymphocytes Percent Auto 23.4 % (20-40); MANUAL DIFF FLAG NO; Mean Corpuscular HGB Conc 33.1 g/dl (31.0-35.0); Mean Corpuscular Hemoglobin 27.5 pg (27.0-33.0); Mean Corpuscular Volume 83.1 fL (80.0-98.0); Mean Platelet Volume 9.6 fL (9.4-12.3); Monocytes Absolute Auto 0.8 X10*3/uL (0.1-1.2); Monocytes Percent Auto 7.3 % (2-11); Neutrophils Percent Auto 67.3 % (45-73); Platelet Count 397 X10*3/uL (160-400); Red Blood Count 5.34 X10*6/uL (4.20-5.50); Red Cell Distribution Width 12.3 % (11.0-16.0); White Blood Count 10.3 X10*3/uL (4.8-10.8)
[2021-09-25 04:03] LABS: Alanine Aminotransferase 10 U/L (0-31); Albumin Level 4.5 g/dL (3.5-5.0); Alkaline Phosphatase 93 U/L (39-117); Anion Gap 18 (12-20); Aspartate Amino Transferase 12 U/L (5-31); Bilirubin Total 0.4 mg/dL (0.0-1.0); Blood Urea Nitrogen 11 mg/dL (9-16); Calcium 9.2 mg/dL (8.4-10.2); Carbon Dioxide 21 mmol/L (22-29); Chloride 104 mmol/L (96-108); Creatinine Clr Calc Pharmacy 149.5; Estimated Glomerular Filt Rate > 60; Glucose Random 102 mg/dL (60-115); Potassium 3.7 mmol/L (3.3-5.1); Sodium 139 mmol/L (135-145)
[2021-09-25] MEDS: ondansetron HCL 4 MG/2 ML VIAL IVPUSH (04:03)
--- NOTE | 2021-09-25 04:03 | ED_ITS ---
HPI - General Adult General Chief complaint: Abdominal Pain Stated complaint: abdominal pain Time Seen by Provider: 09/25/21 03:53 Source: patient Limitations: no limitations History of Present Illness HPI narrative: This is a 26-year-old female who complains of abdominal pain that she has had for about 3 days. The patient was seen here nearly 3 days ago and had an evaluation including labs, CT scan, urinalysis, COVID testing. She did have nonobstructive left renal calculus. The patient tonight had been sleeping and woke up with recurrent severe pain. She has minor pain in her left flank area and more intense pain bilaterally in her mid abdomen. She has associated nausea vomiting. She has also been constipated with last bowel movement 2-3 days ago. She has a prior history of appendectomy Related Data Previous Rx's Medication Instructions Recorded omeprazole magnesium 10 mg oral 20 mg PO DAILY #30 ea 07/11/20 suspension,delayed release (Prilosec) acetaminophen 325 mg capsule 650 mg PO Q6H PRN pain 7 days #56 07/28/20 caps oxycodone-acetaminophen 5 mg-325 1 tab PO Q6H PRN pain #15 tabs 08/05/20 mg tablet oxycodone-acetaminophen 5 mg-325 1 tab PO TID PRN pain #9 tabs 03/20/21 mg tablet (Percocet) polyethylene glycol 3350 17 17 g PO BID PRN constipation #119 09/25/21 gram/dose oral powder (Miralax) grams Allergies Allergy/AdvReac Type Severity Reaction Status Date / Time pollen extracts [POLLEN] Allergy Unknown ITCHY EYES Verified 03/20/21 20:02 ibuprofen [IBUPROFEN] AdvReac Mild Heartburn Verified 03/20/21 20:02 Review of Systems Review of Systems: Per HPI [facility] Past Medical History Medical History No known health problems Surgical History History of appendectomy Previous section Social History Social History Alcohol intake: never Substance Use Type: Marijuana Advance Directives: No Advance Directives Information Provided: Yes 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 Physical Exam ED Vital Signs: Vital Signs - 24 hr 09/25/21 03:19 Pulse Rate 87 Respiratory Rate 16 Blood Pressure 131/88 Pulse Oximetry 99 Oxygen Delivery Method Room Air BMI result Body Mass Index 38.9 Const Other: Patient is somewhat anxious appearing, obese General: no acute distress Orientation/consciousness: patient oriented x3 HENMT Head: Yes normal to inspection General nose exam: Normal external nose present Mouth: moist mucous membranes Throat: Yes posterior oropharynx normal, Yes tonsils normal and Yes uvula midline Eyes Eyelids: Yes eyelids normal Conjunctivae: conjunctivae normal Pupils: Equal, round and reactive pupils present Neck Neck: Yes supple Resp Effort & Inspection: normal respiratory effort Auscultation: clear to auscultation bilaterally Cardio Rate: regular rate Rhythm: regular rhythm Heart sounds: S1 normal heart sound present, S2 normal heart sound present, no gallops, no murmurs and no rubs GI Inspection: No distended Palpation (GI): Soft to palpation and Tenderness to palpation present (GI) (Bilateral mid to lower abdomen) Auscultation: normal bowel sounds Skin General skin exam: other (Warm and dry) Neuro General: patient oriented x3 and CN's II-XI intact bilaterally Cranial nerves: Yes Equal, round and reactive pupils present Extrem General: Yes no pedal edema Psych Affect: normal affect Attitude: cooperative Medical Decision Making MDM Narrative Medical decision making narrative: Patient with a complaint of severe abdominal pain, had improvement with Toradol and Ativan and Zofran. Patient had a recent evaluation here for similar pain, was found to have a nonobstructive renal stone. Patient symptoms today with more generalized abdominal pain are not consistent with renal colic and the patient's stone was not obstructive a few days ago. Patient's CBC and chemistry panel were unremarkable. Patient was able to fall asleep after medication here. Patient appears to have anxiety component. Urinalysis a few days ago and hCG were negative Lab Data Lab results reviewed: Yes I reviewed the patient's lab results. Result diagrams: 09/25/21 03:32 09/25/21 03:32 Labs: Lab Results 09/25/21 09/25/21 Range/Units 03:32 03:32 WBC 10.3 (4.8-10.8) X10*3/uL RBC 5.34 (4.20-5.50) X10*6/uL Hgb 14.7 (12.0-16.0) g/dl Hct 44.4 (37.0-47.0) % MCV 83.1 (80.0-98.0) fL MCH 27.5 (27.0-33.0) pg MCHC 33.1 (31.0-35.0) g/dl RDW 12.3 (11.0-16.0) % Plt Count 397 (160-400) X10*3/uL MPV 9.6 (9.4-12.3) fL Immature Gran % (Auto) 0.2 (0.0-0.4) % Neut % (Auto) 67.3 (45-73) % Lymph % (Auto) 23.4 (20-40) % Mellette % (Auto) 7.3 (2-11) % Eos % (Auto) 1.4 (0-4) % Baso % (Auto) 0.4 (0-2) % Lymph # (Auto) 2.4 (1.2-4.9) X10*3/uL Mellette # (Auto) 0.8 (0.1-1.2) X10*3/uL Eos # (Auto) 0.1 (0.0-0.4) X10*3/uL Baso # (Auto) 0.0 (0.0-0.2) X10*3/uL Abs Immat Gran (auto) 0.02 (0.00-0.03) X10*3/uL Absolute Neuts (auto) 7.0 (2.0-8.3) x10*3/uL Absolute Nucleated RBC 0.000 (0.0-0.012) X10*3/uL Nucleated RBC % (auto) 0.0 (0.0-0.2) /100WBC Sodium 139 (135-145) mmol/L Potassium 3.7 (3.3-5.1) mmol/L Chloride 104 (96-108) mmol/L Carbon Dioxide 21 L (22-29) mmol/L Anion Gap 18 (12-20) BUN 11 D (9-16) mg/dL Creatinine 0.69 (0.5-1.4) mg/dL Estim Creat Clear Calc 149.5 Estimated GFR > 60 Random Glucose 102 (60-115) mg/dL Calcium 9.2 (8.4-10.2) mg/dL Total Bilirubin 0.4 (0.0-1.0) mg/dL AST 12 (5-31) U/L ALT 10 (0-31) U/L Alkaline Phosphatase 93 (39-117) U/L Total Protein 8.0 (6.5-8.0) g/dL Albumin 4.5 (3.5-5.0) g/dL Discharge Plan Discharge Clinical Impression: Abdominal pain Patient Disposition: Home, Self-Care Instructions: Abdominal Pain (ED) Additional Instructions: Use MiraLax as prescribed for constipation. Avoid opiate pain medicine such as oxycodone. Use acetaminophen or ibuprofen for pain Prescriptions: New polyethylene glycol 3350 [Miralax] 17 gram/dose powder 17 g PO BID PRN (Reason: constipation) Qty: 119 0RF No Action Prilosec 10 mg susp,delayed release for recon 20 mg PO DAILY Qty: 30 0RF acetaminophen 325 mg capsule 650 mg PO Q6H PRN (Reason: pain) 7 Days Qty: 56 0RF oxycodone-acetaminophen 5-325 mg tablet 1 tab PO Q6H PRN (Reason: pain) Qty: 15 0RF oxycodone-acetaminophen [Percocet] 5-325 mg tablet 1 tab PO TID PRN (Reason: pain) Qty: 9 0RF Stand Alone Forms: Work/School Release
[2021-09-25] MEDS: Ketorolac Tromethamine 15 MG/ML VIAL IVPUSH (04:13)
[2021-09-25] MEDS: LORazepam 2 MG/ML VIAL 1 MG IVPUSH (04:13)
== END 2021-09-25 06:39 | disposition home or self-care (01) ==
PROVIDERS: Emergency Provider Emergency Medicine
DX: R10.9 Unspecified abdominal pain (principal); R11.2 Nausea with vomiting, unspecified; Z79.899 Other long term (current) drug therapy
CPT/HCPCS: 36415; 80053; 85025; 99283; J1885; J2060; J2405

== ENCOUNTER 2022-05-18 21:54 | Emergency (ER) | payer MEDICAID, SELFPAY ==
--- NOTE | ~2022-05-18 | XR_ITS ---
EXAMINATION: XR WRIST, LEFT CLINICAL INFORMATION: Lump and pain COMPARISON: Left hand 03/30/2014, left wrist 11/17/2006 TECHNIQUE: PA, lateral, and oblique views of the left wrist. FINDINGS: The bones and soft tissues are normal. No fracture. Alignment is anatomic with normal joint spaces. No erosions or abnormal soft tissue calcifications. XR/XR wrist LT 2V IMPRESSION: Normal left wrist.
[2022-05-18 22:40] VITALS: BP 126/79; PULSE 60; RESP 20; TEMP 36.2; O2SAT 98; BMI 38.0
== END 2022-05-19 01:45 | disposition left against medical advice (07) ==
PROVIDERS: Emergency Provider Emergency Medicine
DX: M25.532 Pain in left wrist (principal)
CPT/HCPCS: 73100; 99281; 99283

== ENCOUNTER 2022-06-29 13:04 | Outpatient (REF) | payer MEDICAID, SELFPAY ==
--- NOTE | ~2022-06-29 | US_ITS ---
EXAM: US extremity nonvascular COMPARISON: Wrist radiographs 05/18/2022 TECHNIQUE: Sonographic evaluation of the left wrist was performed. FINDINGS: A 0.9 x 0.8 x 0.5 cm cyst noted volar to the left wrist with a thick wall which may reflect a ganglion cyst. Recommend correlation with physical exam. US/US extremity nonvascular IMPRESSION: A 0.9 cm cyst noted volar to the left wrist with a thick wall which may reflect a ganglion cyst. Recommend correlation with physical exam.
== END 2022-06-29 13:05 | disposition home or self-care (01) ==
LOC: HO.US 13:04
PROVIDERS: PCP Internal Medicine; Visit Provider Registered Nurse
DX: M25.832 Other specified joint disorders, left wrist (principal)
CPT/HCPCS: 76882

== ENCOUNTER → 2022-07-27 11:04 | Outpatient (BNVA) | payer MEDICAID, SELFPAY | PROVIDERS: PCP Internal Medicine; Visit Provider Physician Assistant | DX: G56.02 Carpal tunnel syndrome, left upper limb (principal); M67.432 Ganglion, left wrist | CPT/HCPCS: 99202 ==

== ENCOUNTER 2022-09-13 08:08 | Emergency (ER) | payer MEDICAID, SELFPAY ==
[2022-09-13 08:14] VITALS: BP 126/76; PULSE 84; O2SAT 99
[2022-09-13 08:41] VITALS: BP 145/74; PULSE 68; RESP 18; O2SAT 96; BMI 37.1
[2022-09-13] MEDS: Acetaminophen 325 MG TABLET 650 MG PO (08:46)
[2022-09-13] MEDS: Lidocaine HCl 1 % MPF 5 ML VIAL INFILTRATI (10:42)
[2022-09-13] MEDS: NaPROXEN 500 MG TABLET PO (10:42)
--- NOTE | 2022-09-13 10:42 | PC.NURSE ---
UNABLE TO SCAN MEDS, COMPUTERS DOWN
--- NOTE | 2022-09-13 11:10 | ED_ITS ---
HPI - Wound/Laceration General Chief Complaint: Wound/Laceration Stated Complaint: R hand lac from broken window per EMS Time Seen by Provider: 09/13/22 09:34 Source: patient and RN notes reviewed Mode of arrival: EMS Limitations: no limitations History of Present Illness HPI narrative: This is a 27-year-old female presenting to the emergency department Via EMS with complaints of laceration on her right hand which occurred today. patient reports that she is currently fixing her home and 1 of the windows fell forward and shattered onto her right hand. She immediately washed her hand. She does not believe that there is any glass in her hand. patient believes she has had her tetanus vaccination within the last 5 years. Denies any other complaints or concerns this time. Onset (ago): hour(s) Place: home Patient tetanus UTD: Yes Context: accidental Associated symptoms: none Related Data Previous Rx's Medication Instructions Recorded omeprazole magnesium 10 mg oral 20 mg PO DAILY #30 ea 07/11/20 suspension,delayed release (Prilosec) acetaminophen 325 mg capsule 650 mg PO Q6H PRN pain 7 days #56 07/28/20 caps oxycodone-acetaminophen 5 mg-325 1 tab PO Q6H PRN pain #15 tabs 08/05/20 mg tablet oxycodone-acetaminophen 5 mg-325 1 tab PO TID PRN pain #9 tabs 03/20/21 mg tablet (Percocet) polyethylene glycol 3350 17 17 g PO BID PRN constipation #119 09/25/21 gram/dose oral powder (Miralax) grams acetaminophen 500 mg tablet 500 mg PO Q6H PRN pain #30 tabs 09/29/21 (Tylenol Extra Strength) polyethylene glycol 3350 17 17 g PO BID #238 grams 09/29/21 gram/dose oral powder (Miralax) Allergies Allergy/AdvReac Type Severity Reaction Status Date / Time pollen extracts [POLLEN] Allergy Unknown ITCHY EYES Verified 07/27/22 11:14 ibuprofen [IBUPROFEN] AdvReac Mild Heartburn Verified 07/27/22 11:14 Review of Systems Review of Systems: Constitutional: No Weight loss, No Fever, No Chills ENT/Mouth: No Ear Pain, No Nasal Congestion, No Sinus Pain, No Hoarseness, No sore throat, No Rhinorrhea, No Swallowing Difficulty Cardiovascular: No Chest Pain, No SOB Respiratory: No Cough, No Sputum, No Wheezing Gastrointestinal: No Nausea, No Vomiting, No Diarrhea, No Constipation, No Abdominal pain Genitourinary: No Dysuria, No Urinary Frequency, No Hematuria, No Urinary Incontinence/retention, No Urgency, No Flank Pain Musculoskeletal: No joint pain, No Myalgias, No Joint Swelling Skin: +laceration No Skin Lesions, No rash Neuro: No Weakness, No Numbness, No Paresthesias [facility] Past Medical History Medical History (Updated 09/13/22 @ 11:11 by POLY Zambrano) No known health problems Surgical History (Updated 07/27/22 @ 11:15 by BRAVO Keane) History of appendectomy Hx of hand surgery Previous section Social History Social History (Updated 07/27/22 @ 11:18 by BRAVO Keane) Alcohol intake: never Patient Tobacco Use Status: Current everyday Tobacco user Substance Use Type: Marijuana Advance Directives: No Advance Directives Information Provided: Yes 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 No acute distress. HEENT: Normal inspection CVS: Normal heart rate and rhythm. Pulses normal. Respiratory: No respiratory distress Skin: Right hand palmar aspect, just inferior to the 4th and 5th digit there is a linear, superficial laceration approximately 3 cm long. No active drainage or discharge. Extremities: Right hand full range of motion of all fingers, able to make a fist without difficulty. No numbness or tingling. Distal sensation and circulation intact. Neuro: Oriented X 3. No motor deficit. No sensory deficit. Medications Administered Discontinued Medications Generic Name Dose Route Start Last Admin Trade Name Freq PRN Reason Stop Dose Admin Acetaminophen 650 mg 09/13/22 08:43 09/13/22 08:46 Acetaminophen 325 Mg Tablet PO 09/13/22 08:44 650 mg ONCE ONE Administration Lidocaine HCl 5 ml 09/13/22 10:11 09/13/22 10:42 Lidocaine Hcl 1 % Mpf 5 Ml Vial INFILTRATI 09/13/22 10:12 5 ml ONCE ONE Administration Naproxen 500 mg 09/13/22 10:10 09/13/22 10:42 Naproxen 500 Mg Tablet PO 09/13/22 10:11 500 mg Q12H ONE Administration Medical Decision Making Medical Decision Making MDM Narrative: 27-year-old female presenting to the emergency department right hand laceration which occurred today. on examination patient has a linear superficial laceration noted to the right palm. Not requiring stitches. Wound closed using Dermabond after cleansing with Betadine and saline. Patient tolerated procedure well. Patient given good wound care instructions. Patient's tetanus updated in the the department today. Patient medicated with Tylenol and Naprosyn. Given return precautions if any new or worsening symptoms occur. Patient stable for discharge. Differential Diagnosis Differential Diagnoses: The differential diagnosis associated with the presentation includes laceration, contusion, abrasion, cellulitis Procedures Procedure Narrative Procedure Narrative: Wound cleansed using saline and Betadine. Wound was soaked for 20 minutes. No foreign body noted. Wound explored and is superficial. Dermabond used to approximate wound. Patient tolerated procedure well without any complications or concerns. Discharge Plan Discharge Clinical Impression: Laceration of hand Patient Disposition: Home, Self-Care Instructions: Laceration (ED), Skin Adhesive Care (ED) Additional Instructions: The wound you have on your hand was superficial, and did not require stitches today. Keep wound clean and dry. Do not submerge wound, if wound does get wet pat dry. Do not pick at the wound. Watch for any signs of infection including fevers, chills, increased redness or discharge. Your last tetanus shot was in 2019, you do not need this updated today. If any new or worsening symptoms occur please return for re-evaluation. Prescriptions: No Action Prilosec 10 mg susp,delayed release for recon 20 mg PO DAILY Qty: 30 0RF acetaminophen 325 mg capsule 650 mg PO Q6H PRN (Reason: pain) 7 Days Qty: 56 0RF oxycodone-acetaminophen 5-325 mg tablet 1 tab PO Q6H PRN (Reason: pain) Qty: 15 0RF polyethylene glycol 3350 [Miralax] 17 gram/dose powder 17 g PO BID PRN (Reason: constipation) Qty: 119 0RF polyethylene glycol 3350 [Miralax] 17 gram/dose powder 17 g PO BID Qty: 238 0RF acetaminophen [Tylenol Extra Strength] 500 mg tablet 500 mg PO Q6H PRN (Reason: pain) Qty: 30 0RF oxycodone-acetaminophen [Percocet] 5-325 mg tablet 1 tab PO TID PRN (Reason: pain) Qty: 9 0RF Interventions: ED Discharge Assessment Last Done: 09/13/22 11:27 Discharge Date/Time: 09/13/22 11:29
== END 2022-09-13 11:29 | disposition home or self-care (01) ==
PROVIDERS: Emergency Provider Internal Medicine; PCP Internal Medicine
DX: S61.411A Laceration without foreign body of right hand, initial encounter (principal); W25.XXXA Contact with sharp glass, initial encounter; Y93.E9 Activity, other interior property and clothing maintenance; Y92.039 Unspecified place in apartment as the place of occurrence of the external cause; Y99.9 Unspecified external cause status
CPT/HCPCS: 12001; 99283; 99284

== ENCOUNTER 2022-11-17 19:18 | Outpatient (REF) | payer MEDICAID, SELFPAY ==
[2022-11-18 05:07] LABS: CT PCR NOT DETECTED (Not Detect.); NG PCR NOT DETECTED (Not Detect.)
[2022-11-18 10:35] LABS: BV Int Neg Control Negative (Negative); BV Int Pos Control Positive (Positive)
== END 2022-11-17 19:19 | disposition home or self-care (01) ==
LOC: HO.HHCLNP 19:18
PROVIDERS: Visit Provider Emergency Medicine
DX: N76.0 Acute vaginitis (principal)
CPT/HCPCS: 0353U; 36415; 87255; 87480; 87510; 87660

== ENCOUNTER 2022-12-05 07:38 | Emergency (ER) | payer MEDICAID, SELFPAY ==
--- NOTE | ~2022-12-05 | US_ITS ---
EXAMINATION: US OBSTETRICAL ULTRASOUND CLINICAL INFORMATION: Positive , lower abdominal pain. COMPARISON: None available. LMP: 10/19/2022. Gestational age by maternal dates is 6 weeks, 5 days. Estimated date of delivery by maternal dates is 07/26/2023. TECHNIQUE: Multiple 2-D grayscale and Doppler ultrasound images of the pelvis were obtained. FINDINGS: There is a single intrauterine gestational sac with visible yolk sac, embryo/fetus, and cardiac activity. There is no significant subchorionic hemorrhage or hematoma. HR: 98 beats per minute. CRL (crown rump length): 0.51 cm (6 weeks, 2 days +/- 4 days). BARBARA (estimated date of delivery): 07/29/2023 +/- 4 days. MATERNAL ADNEXA: The right maternal ovary measures 3.1 x 2.5 x 2.7 cm. Volume 11.0 mL. No right adnexal abnormality. The left maternal ovary measures 4.1 x 2.9 x 3.0 cm. Volume 18 mm. No left adnexal abnormality. There is no significant maternal adnexal mass. No maternal pelvic ascites. US/US OB pelvic and transvaginal IMPRESSION: 1. Single intrauterine gestation with ultrasound gestational age of 6 weeks, 2 +/- 4 days. Given the heart rate, short-term obstetric and imaging follow-up is recommended as clinically indicated.
[2022-12-05 07:40] VITALS: BP 134/85; PULSE 55; RESP 14; O2SAT 94; BMI 36.9
--- NOTE | 2022-12-05 07:46 | ECG_ITS ---
Test Reason : dizzy Blood Pressure : / mmHG Vent. Rate : 062 BPM Atrial Rate : 062 BPM P-R Int : 118 ms QRS Dur : 096 ms QT Int : 430 ms P-R-T Axes : 053 036 050 degrees QTc Int : 436 ms Normal sinus rhythm with sinus arrhythmia Normal ECG When compared with ECG of 23-AUG-2018 13:45, No significant change was found Referred By: Generic ED Physician Electronically Signed By:ANASTASIYA AGGARWAL
--- NOTE | 2022-12-05 08:00 | ED.ABDPAIN ---
HPI - Abdominal Pain General Chief Complaint: Abdominal Pain Stated Complaint: /Abd pain/Dizziness Time Seen by Provider: 12/05/22 07:47 Source: patient Mode of arrival: ambulatory Limitations: no limitations History of Present Illness HPI narrative: 27 yo female with history of appendectomy in the past, currently in the early stage of with LMP 10/20 who had a positive test at home on 11/29 who presents to the ER for evaluation of lower abdominal pain and cramping that started 3 days ago. She reports it is associated with nausea and vomiting. She also started having diarrhea this morning. She denies any vaginal bleeding or abnormal vaginal discharge. She recently saw her PCP a couple of weeks ago for vaginal dryness and was found to have BV, started on metronidazole which she stopped when she found out she was . She was negative for STIs at that time. She reports history of miscarriage Dece2021 that started with similar symptoms. She has an appointment with her OB at [facility] at the end of December. MD elicited complaint: abdominal pain Pertinent past history: other () Onset (ago): day(s) (3) Pain Consistency: intermittent Location: pelvis Severity: moderate Pain scale (0-10): 8 Quality: cramping and stabbing Radiation: none Migration to: no migration Exacerbating factors: nothing Relieving factors: nothing Associated symptoms: nausea, vomiting and diarrhea Related Data Date of Last Menstrual Period: 10/20/22 Patient : Yes Previous Rx's Medication Instructions Recorded omeprazole magnesium 10 mg oral 20 mg PO DAILY #30 ea 07/11/20 suspension,delayed release (Prilosec) acetaminophen 325 mg capsule 650 mg PO Q6H PRN pain 7 days #56 07/28/20 caps oxycodone-acetaminophen 5 mg-325 1 tab PO Q6H PRN pain #15 tabs 08/05/20 mg tablet oxycodone-acetaminophen 5 mg-325 1 tab PO TID PRN pain #9 tabs 03/20/21 mg tablet (Percocet) polyethylene glycol 3350 17 17 g PO BID PRN constipation #119 09/25/21 gram/dose oral powder (Miralax) grams acetaminophen 500 mg tablet 500 mg PO Q6H PRN pain #30 tabs 09/29/21 (Tylenol Extra Strength) polyethylene glycol 3350 17 17 g PO BID #238 grams 09/29/21 gram/dose oral powder (Miralax) Allergies Allergy/AdvReac Type Severity Reaction Status Date / Time pollen extracts [POLLEN] Allergy Unknown ITCHY EYES Verified 07/27/22 11:14 ibuprofen [IBUPROFEN] AdvReac Mild Heartburn Verified 07/27/22 11:14 Review of Systems Review of Systems Yes all other systems are reviewed and are negative [facility] Past Medical History Medical History (Updated 12/05/22 @ 10:23 by POLY Dumont) No known health problems Surgical History (Updated 07/27/22 @ 11:15 by BRAVO Keane) History of appendectomy Hx of hand surgery Previous section Date of Last Menstrual Period: 10/20/22 Social History Social History (Updated 07/27/22 @ 11:18 by BRAVO Keane) Alcohol intake: never Patient Tobacco Use Status: Current everyday Tobacco user Substance Use Type: Marijuana Advance Directives: No Patient : Yes 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 Oriented X3. No acute distress. Head: normocephalic, atraumatic. Eyes: Pupils equal, round and reactive to light. ENT: Pharynx normal. No tonsillar swelling or exudate. Neck: Normal inspection. Neck supple. CVS: Normal heart rate and rhythm. Pulses normal. Respiratory: No respiratory distress. Breath sounds normal. Abdomen: Obese, Soft with mild lower abdominal tenderness bilaterally without rebound or guarding, normal active +BS x4. pelvic deferred Skin: Skin warm and dry. Normal skin color. Normal skin turgor. No rashes. Extremities: No lower extremity edema. No joint swelling. Neuro/psych: Oriented X 3. No motor deficit. No sensory deficit. CN II-XII intact. Normal speech and cognition. Medical Decision Making Medical Decision Making MDM Narrative: 27 yo currently approximately 6w4d with BARBARA of July 27, 2023 who presents to the ER for evaluation of lower abdominal pain, N/V x3 days. no vaginal bleeding or discharge. VSS and physical exam with only mild tenderness. labs showing HCG 13,800 U/S reviewed - IUP 6w3d w/ HR 98. recommending close OB follow up. patient feeling better, pain improved on its own. no vomiting. at this time comfortable w/ d/c home with close OB follow up - she will call eddie diaz today. discussed return and miscarriage precautions. Differential Diagnosis Differential Diagnoses: The differential diagnosis associated with the presentation includes 1st trimester of , dehydration, electrolyte abnormality, threatened , spontaneous , ectopic Admission/Observation Consideration of admission/observation: Escalation of care including admission/observation considered Lab Data MDM Lab Attestation statement: I reviewed the patient's lab results. no anemia, RH+ 12/05/22 08:04 12/05/22 08:04 Labs: Lab Results 12/05/22 12/05/22 12/05/22 Range/Units 08:04 08:04 08:19 WBC 8.3 (4.8-10.8) X10*3/uL RBC 4.69 (4.20-5.50) X10*6/uL Hgb 13.2 (12.0-16.0) g/dl Hct 39.5 (37.0-47.0) % MCV 84.2 (80.0-98.0) fL MCH 28.1 (27.0-33.0) pg MCHC 33.4 (31.0-35.0) g/dl RDW 12.7 (11.0-16.0) % Plt Count 338 (160-400) X10*3/uL MPV 9.8 (9.4-12.3) fL Immature Gran % (Auto) 0.2 (0.0-0.4) % Neut % (Auto) 68.6 (45-73) % Lymph % (Auto) 24.8 (20-40) % Nicholas % (Auto) 4.9 (2-11) % Eos % (Auto) 1.0 (0-4) % Baso % (Auto) 0.5 (0-2) % Lymph # (Auto) 2.1 (1.2-4.9) X10*3/uL Nicholas # (Auto) 0.4 (0.1-1.2) X10*3/uL Eos # (Auto) 0.1 (0.0-0.4) X10*3/uL Baso # (Auto) 0.0 (0.0-0.2) X10*3/uL Abs Immat Gran (auto) 0.02 (0.00-0.03) X10*3/uL Absolute Neuts (auto) 5.7 (2.0-8.3) x10*3/uL Absolute Nucleated RBC 0.000 (0.0-0.012) X10*3/uL Nucleated RBC % (auto) 0.0 (0.0-0.2) /100WBC Sodium 138 (135-145) mmol/L Potassium 3.7 (3.3-5.1) mmol/L Chloride 108 (96-108) mmol/L Carbon Dioxide 23 (22-29) mmol/L Anion Gap 11 L (12-20) BUN 6 L (9-16) mg/dL Creatinine 0.64 (0.5-1.4) mg/dL Estim Creat Clear Calc 149.7 Estimated GFR > 60 Random Glucose 102 (60-115) mg/dL Calcium 8.8 (8.4-10.2) mg/dL Total Bilirubin 0.4 (0.0-1.0) mg/dL Direct Bilirubin 0.2 (0.0-0.5) mg/dL AST 8 (5-31) U/L ALT 6 (0-31) U/L Alkaline Phosphatase 66 (39-117) U/L Total Protein 7.1 (6.5-8.0) g/dL Albumin 3.9 (3.5-5.0) g/dL Lipase 11 (8-78) U/L Beta HCG, Quant 81743 mIU/mL Urine Color Urine Appearance Urine pH (5.0-9.0) Ur Specific Lockwood (1.005-1.025) Urine Protein (Neg-Trace) mg/dL Urine Glucose (UA) (Negative) mg/dL Urine Ketones (Negative) mg/dL Urine Blood (Negative) Urine Nitrite (Negative) Ur Leukocyte Esterase (Negative) Urine Test (NEGATIVE) Blood Type 12/05/22 12/05/22 12/05/22 Range/Units 08:19 08:51 08:51 WBC (4.8-10.8) X10*3/uL RBC (4.20-5.50) X10*6/uL Hgb (12.0-16.0) g/dl Hct (37.0-47.0) % MCV (80.0-98.0) fL MCH (27.0-33.0) pg MCHC (31.0-35.0) g/dl RDW (11.0-16.0) % Plt Count (160-400) X10*3/uL MPV (9.4-12.3) fL Immature Gran % (Auto) (0.0-0.4) % Neut % (Auto) (45-73) % Lymph % (Auto) (20-40) % Nicholas % (Auto) (2-11) % Eos % (Auto) (0-4) % Baso % (Auto) (0-2) % Lymph # (Auto) (1.2-4.9) X10*3/uL Nicholas # (Auto) (0.1-1.2) X10*3/uL Eos # (Auto) (0.0-0.4) X10*3/uL Baso # (Auto) (0.0-0.2) X10*3/uL Abs Immat Gran (auto) (0.00-0.03) X10*3/uL Absolute Neuts (auto) (2.0-8.3) x10*3/uL Absolute Nucleated RBC (0.0-0.012) X10*3/uL Nucleated RBC % (auto) (0.0-0.2) /100WBC Sodium (135-145) mmol/L Potassium (3.3-5.1) mmol/L Chloride (96-108) mmol/L Carbon Dioxide (22-29) mmol/L Anion Gap (12-20) BUN (9-16) mg/dL Creatinine (0.5-1.4) mg/dL Estim Creat Clear Calc Estimated GFR Random Glucose (60-115) mg/dL Calcium (8.4-10.2) mg/dL Total Bilirubin (0.0-1.0) mg/dL Direct Bilirubin (0.0-0.5) mg/dL AST (5-31) U/L ALT (0-31) U/L Alkaline Phosphatase (39-117) U/L Total Protein (6.5-8.0) g/dL Albumin (3.5-5.0) g/dL Lipase (8-78) U/L Beta HCG, Quant mIU/mL Urine Color Yellow Urine Appearance Cloudy Urine pH 8.5 (5.0-9.0) Ur Specific Lockwood 1.015 (1.005-1.025) Urine Protein Negative (Neg-Trace) mg/dL Urine Glucose (UA) Negative (Negative) mg/dL Urine Ketones Negative (Negative) mg/dL Urine Blood Negative (Negative) Urine Nitrite Negative (Negative) Ur Leukocyte Esterase Negative (Negative) Urine Test POSITIVE H (NEGATIVE) Blood Type A Positive Independent Interpretation I performed an independent interpretation of an: Ultrasound Interpretation: IUP seen, no adenxal masses, agree w/ radiology read Radiology Impression Discussion of test interpretation with radiology: I have reviewed the radiologist's reading. Radiologist Impression: EXAMINATION:? US OBSTETRICAL ULTRASOUND CLINICAL INFORMATION:? Positive , lower abdominal pain. COMPARISON:? None available.? LMP: 10/19/2022. Gestational age by maternal dates is 6 weeks, 5 days. Estimated date of delivery by maternal dates is 07/26/2023. TECHNIQUE: Multiple 2-D grayscale and Doppler ultrasound images of the pelvis were obtained. ? FINDINGS: There is a single intrauterine gestational sac with visible yolk sac, embryo/fetus, and cardiac activity.? There is no significant subchorionic hemorrhage or hematoma. HR:? 98 beats per minute. CRL (crown rump length): ? 0.51 cm (6 weeks, 2 days +/- 4 days). BARBARA (estimated date of delivery):? 07/29/2023 +/- 4 days. ? MATERNAL ADNEXA: ? ? The right maternal ovary measures 3.1 x 2.5 x 2.7 cm.? Volume 11.0 mL. No right adnexal abnormality. The left maternal ovary measures 4.1 x 2.9 x 3.0 cm.? Volume 18 mm. No left adnexal abnormality. There is no significant maternal adnexal mass.? No maternal pelvic ascites. US/US OB pelvic and transvaginal IMPRESSION: 1. Single intrauterine gestation with ultrasound gestational age of? 6 weeks, 2 +/- 4 days. Given the heart rate, short-term obstetric and imaging follow-up is recommended as clinically indicated. External Record Review External record reviewed: Outpatient record, Prior outpatient labs and Prior outpatient radiology Tests considered The following testing was considered but not selected: ovarian doppler was considered but low clinical suspicion for torsion Prescription Management I considered prescription management with: Pain Medication and Antibiotic Medications Administered Discontinued Medications Generic Name Dose Route Start Last Admin Trade Name Freq PRN Reason Stop Dose Admin Sodium Chloride 1,000 mls @ 999 mls/hr 12/05/22 08:15 12/05/22 08:28 Ns IVCONT 12/05/22 09:15 999 mls/hr .Q1H1M LINN Administration Critical Care Time Critical Care Time Critical Care Time: No Discharge Plan Discharge Clinical Impression: , Abdominal pain Patient Disposition: Home, Self-Care Instructions: (ED), Abdominal Pain in (ED) Additional Instructions: Your hormone (beta-HCG) today was 13,800 Your labwork was otherwise unremarkable. Your ultrasound results are below. Recommend following up with your FORMAL WAITER/WAITRESS as soon as possible. Recommend starting vitamin B6 and Unisom every night to prevent vomiting - both can be found over the counter at any pharmacy Start a vitamin If you develop worsening pain or vaginal bleeding call your doctor or come back to the ER for further evaluation. EXAMINATION:? US OBSTETRICAL ULTRASOUND CLINICAL INFORMATION:? Positive , lower abdominal pain. COMPARISON:? None available.? LMP: 10/19/2022. Gestational age by maternal dates is 6 weeks, 5 days. Estimated date of delivery by maternal dates is 07/26/2023. FINDINGS: There is a single intrauterine gestational sac with visible yolk sac, embryo/fetus, and cardiac activity.? There is no significant subchorionic hemorrhage or hematoma. HR:? 98 beats per minute. CRL (crown rump length): ? 0.51 cm (6 weeks, 2 days +/- 4 days). BARBARA (estimated date of delivery):? 07/29/2023 +/- 4 days. ? MATERNAL ADNEXA: ? ? The right maternal ovary measures 3.1 x 2.5 x 2.7 cm.? Volume 11.0 mL. No right adnexal abnormality. The left maternal ovary measures 4.1 x 2.9 x 3.0 cm.? Volume 18 mm. No left adnexal abnormality. There is no significant maternal adnexal mass.? No maternal pelvic ascites. US/US OB pelvic and transvaginal IMPRESSION: 1. Single intrauterine gestation with ultrasound gestational age of? 6 weeks, 2 +/- 4 days. Given the heart rate, short-term obstetric and imaging follow-up is recommended as clinically indicated. Prescriptions: No Action Prilosec 10 mg susp,delayed release for recon 20 mg PO DAILY Qty: 30 0RF acetaminophen 325 mg capsule 650 mg PO Q6H PRN (Reason: pain) 7 Days Qty: 56 0RF oxycodone-acetaminophen 5-325 mg tablet 1 tab PO Q6H PRN (Reason: pain) Qty: 15 0RF polyethylene glycol 3350 [Miralax] 17 gram/dose powder 17 g PO BID PRN (Reason: constipation) Qty: 119 0RF polyethylene glycol 3350 [Miralax] 17 gram/dose powder 17 g PO BID Qty: 238 0RF acetaminophen [Tylenol Extra Strength] 500 mg tablet 500 mg PO Q6H PRN (Reason: pain) Qty: 30 0RF oxycodone-acetaminophen [Percocet] 5-325 mg tablet 1 tab PO TID PRN (Reason: pain) Qty: 9 0RF Stand Alone Forms: Work/School Release Discharge Date/Time: 12/05/22 10:43
[2022-12-05 08:08] LABS: MANUAL DIFF FLAG NO
[2022-12-05 08:09] LABS: Basophils Percent Auto 0.5 % (0-2); Eosinophils Absolute Auto 0.1 X10*3/uL (0.0-0.4); Hematocrit 39.5 % (37.0-47.0); Hemoglobin 13.2 g/dl (12.0-16.0); Imm Gran Abs Auto 0.02 X10*3/uL (0.00-0.03); Imm Gran Pct Auto 0.2 % (0.0-0.4); Lymphocytes Absolute Auto 2.1 X10*3/uL (1.2-4.9); Lymphocytes Percent Auto 24.8 % (20-40); Mean Corpuscular HGB Conc 33.4 g/dl (31.0-35.0); Mean Corpuscular Hemoglobin 28.1 pg (27.0-33.0); Mean Corpuscular Volume 84.2 fL (80.0-98.0); Mean Platelet Volume 9.8 fL (9.4-12.3); Monocytes Absolute Auto 0.4 X10*3/uL (0.1-1.2); Monocytes Percent Auto 4.9 % (2-11); Neutrophils Absolute Auto 5.7 x10*3/uL (2.0-8.3); Neutrophils Percent Auto 68.6 % (45-73); Platelet Count 338 X10*3/uL (160-400); Red Blood Count 4.69 X10*6/uL (4.20-5.50); Red Cell Distribution Width 12.7 % (11.0-16.0); White Blood Count 8.3 X10*3/uL (4.8-10.8)
[2022-12-05 08:28] LABS: Alanine Aminotransferase 6 U/L (0-31); Albumin Level 3.9 g/dL (3.5-5.0); Alkaline Phosphatase 66 U/L (39-117); Anion Gap 11 (12-20); Aspartate Amino Transferase 8 U/L (5-31); Bilirubin Direct 0.2 mg/dL (0.0-0.5); Bilirubin Total 0.4 mg/dL (0.0-1.0); Blood Urea Nitrogen 6 mg/dL (9-16); Calcium 8.8 mg/dL (8.4-10.2); Carbon Dioxide 23 mmol/L (22-29); Chloride 108 mmol/L (96-108); Creatinine Clr Calc Pharmacy 149.7; Estimated Glomerular Filt Rate > 60; Glucose Random 102 mg/dL (60-115); Lipase 11 U/L (8-78); Potassium 3.7 mmol/L (3.3-5.1); Sodium 138 mmol/L (135-145); Total Protein 7.1 g/dL (6.5-8.0)
[2022-12-05] MEDS: 0.9 % Sodium Chloride 1,000 ML 999 ML IVCONT (08:28)
--- OUTSIDE RECORDS SUMMARY | 2022-12-05 08:34 | XMS_ITS | Continuity of Care Document ---
Author Name Unknown Organization [facility] Address [address] [place] [id number]- Care Team Providers Care Rib Matcher And Fitter Name Role Phone Daniella Rocha MD Primary Care Physician Encounter [facility] [place] Date(s): 03/22/22 - 04/21/22 [facility] [address] [address]- Allergies, Adverse Reactions, Alerts No Known Allergies Immunizations Given and Recorded Vaccine Date Status Refusal Reason Measles/Mumps/Rubella Virus Vaccine 01/16/19 Given tetanus/diphtheria/pertussis, acel(Tdap) 10/24/18 Given Problem List Condition Confirmation Course Effective Dates Status Health St atus Informant Abnormal quad screen Confirmed Active Anemia Confirmed Active Anxiety and depression Confirmed Active Acid reflux Confirmed Active 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 History of marijuana use Confirmed Active Obesity Confirmed Active Rubella non-immune status, antepartum Confirmed Active Maternal varicella, non-immune Confirmed Active Social History Social History Type Response Smoking Status 10 or more cigarette s (1/2 pack or more)/day in last 30 days entered on: 01/16/22 Sex Patient Care team information Care Team Personnel Name: Daniella Rocha MD Position: [facility] Outreach Member Role: PCP Address: Address: [address] [place] [id number]- Care Team Related Persons Name: RUPA CARRILLO Address: home [address] [address] Name: RODGER CARRILLO Name: MARTINEZ CHRISTINE Address: home [address] [address] Name: SERINA CHRISTINE Address: [id number] Address: home [address] [address]
--- OUTSIDE RECORDS SUMMARY | 2022-12-05 08:34 | XMS_ITS | Continuity of Care Document ---
Author Name Unknown Organization [facility] Address [address] [place] [phone]- Care Team Providers Care Senior Php Software Developer Name Role Phone Josefina CARPENTER, Daniella Payton Primary Care Physician [place] [facility] [place](s): 01/16/22 - 01/16/[address] [address]- Discharge Disposition: A-D/C Walkout Attending Physician: Not on Staff, Attending MD Admitting Physician: Not on Staff, Admitting MD Referring Physician: Not on Staff, Referring MD Allergies, Adverse Reactions, Alerts No Known Allergies Immunizations Given and Recorded Vaccine Date Status Refusal Reason Measles/Mumps/Rubella Virus Vaccine 01/16/19 Given tetanus/diphtheria/pertussis, acel(Tdap) 10/24/18 Given Medications Colace sodium 100 mg oral capsule 100 mg, 1, capsule, By Mouth, 2 times a day, PRN, # 50 capsule, Refills 0, Tot. Refills 0, Maintenance, for constipation, 01/19/19 5:36:37 EDT, Route to Pharmacy Electronically, [id number], [facility] Start Date: 01/19/19 Status: Ordered Diflucan 150 mg oral tablet 1 tablet = 150 mg, By Mouth, Once, # 1 tablet, 0 Refills, Soft Stop, 02/27/19 14:50:42 EST Start Date: 02/27/19 Status: Ordered Ortho Micronor 0.35 mg oral tablet 1 tablet = 0.35 mg, By Mouth, Daily, # 30 tablet, 3 Refills, Maintenance, 01/19/19 5:40:39 EDT, Tablet Start Date: 01/19/19 Status: Ordered oxyCODONE 5 mg oral tablet 5 mg, 1, tablet, By Mouth, Every 6 hours, PRN, Postoperative pain, # 20 tablet, Refills 0, Tot. Refills 0, Maintenance, for pain, 01/19/19 5:36:42 EDT, Route to Pharmacy Electronically, [id number], [facility], P... 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 History of marijuana use Confirmed Active Obesity Confirmed Active Rubella non-immune status, antepartum Confirmed Active Maternal varicella, non-immune Confirmed Active Vital Signs Most recent to oldest [Reference Range]: 1 2 Height 166 cm (01/16/22 1:01 PM) Weight 106.5 kg (01/16/22 1:01 PM) 106.5 kg (01/16/22 12:09 PM) Oxygen Saturation [94-100 %] 99 % (01/16/22 12:09 PM) Pulse Rate [55-90 bpm] 61 bpm (01/16/22 12:09 PM) Blood Pressure [90-138/55-84 mm Hg] 142/ 88mm Hg *H* (01/16/22 12:09 PM) Respiratory Rate [16-30 br/min] 18 br/mi n (01/16/22 12:09 PM) Temperature [96.8-100.4 DegF] 97.7 DegF (01/16/22 12:09 PM) Liters per Minute 0 L/min (01/16/22 12:09 PM) Mode of Delivery (Oxygen) Room air (01/16/22 12:09 PM) Blood pressure sites Arm, left (01/16/22 12:09 PM) Temperature Route Oral (01/16/22 12:09 PM) Dry Weight 106.5 kg (01/16/22 1:01 PM) 106.5 kg (01/16/22 12:09 PM) Weight Obtained Via Patient/family state d (01/16/22 12:09 PM) Dry Weight Obtained Via Patient/family s tated (01/16/22 12:09 PM) Social History Social History Type Response Smoking Status 10 or more cigarette s (1/2 pack or more)/day in last 30 days entered on: 01/16/22 Sex Patient Care team information Personnel Name: Josefina CARPENTER, Daniella Payton Address: Address: [address] [place] [id number]
--- OUTSIDE RECORDS SUMMARY | 2022-12-05 08:34 | XMS_ITS | Continuity of Care Document ---
Author Name Unknown Organization [facility] Address [address] [place] [id number]- Care Team Providers Care Soil Scientist Name Role Phone Josefina CARPENTER, Daniella Payton Primary Care Physician [place] [facility] [place]/[address] [address]- [facility] Attending Physician: Bryon Sunshine Admitting Physician: Bryon Sunshine Referring Physician: AdmtrBryon Allergies, Adverse Reactions, Alerts Substance Reaction Severity Status NKA Active Immunizations Given and Recorded Vaccine Date Status Refusal Reason Measles/Mumps/Rubella Virus Vaccine 01/16/19 Given tetanus/diphtheria/pertussis, acel(Tdap) 10/24/18 Given Medications Colace sodium 100 mg oral capsule 100 mg, 1, capsule, By Mouth, 2 times a day, PRN, # 50 capsule, Refills 0, Tot. Refills 0, Maintenance, for constipation, 01/19/19 5:36:37 EDT, Route to Pharmacy Electronically, [id number], [facility] Start Date: 01/19/19 Status: Ordered [...] 01/19/19 5:36:42 EDT, Route to Pharmacy Electronically, [id number], [facility], P... Start Date: 01/19/19 Status: Ordered Multivitamin Tablet 0 Refills, Maintenance, 06/03/18 9:48:11 EST Start Date: 06/03/18 Status: Ordered Slow Fe (as elemental iron) 45 mg oral tablet, extended release See Instructions, 1 tablet By Mouth twice Daily, # 60 tablet, 6 Refills, Maintenance, 11/07/18 10:04:46 EDT, ER Tablet Start Date: 11/07/18 Status: Ordered Problem List Condition Effective Dates Status Health Status Inform ant Abnormal quad screen(Confirmed) Active Anemia(Confirmed) Active Anxiety and depression(Confirmed) Active Acid reflux(Confirmed) Active GBS carrier(Confirmed) Active History of marijuana use(Confirmed) Active Obesity(Confirmed) Active Rubella non-immune status, antepartum(Confirmed) Active Maternal varicella, non-immune(Confirmed) Active Social History Social History Type Response Smoking Status Former smoker, quit more than 30 days ago entered on: 10/25/18 Sex
--- OUTSIDE RECORDS SUMMARY | 2022-12-05 08:34 | XMS_ITS | Continuity of Care Document ---
Author Name Unknown Organization [facility] Address [address] [place] [id number]- Care Team Providers Care Apartment Maintenance Worker Name Role Phone Josefina CARPENTER, Daniella Payton Primary Care Physician Encounter [facility] [place] Date(s): 09/25/21 - 09/25/[address] [address]- Discharge Disposition: A-D/C Home Attending Physician: Chari Rahman MD Admitting Physician: Chari Rahman MD Referring Physician: Not on Staff, Referring [...] 01/19/19 5:36:37 EDT, Route to Pharmacy Electronically, [id number], [facility] Start Date: 01/19/19 Status: Ordered [...] 01/19/19 5:36:42 EDT, Route to Pharmacy Electronically, [id number], [facility], P... Start Date: 01/19/19 Status: Ordered [...] status, antepartum(Confirmed) Active Maternal varicella, non-immune(Confirmed) Active Vital Signs Most recent to oldest [Reference Range]: 1 2 3 Oxygen Saturation [94-100 %] 100 % (09/25/21 3:43 PM) 99 % (09/25/21 1:48 PM) 100 % (09/25/21 10:13 AM) Pulse Rate [55-90 bpm] 68 bpm (09/25/21 3:43 PM) 83 bpm (09/25/21 1:48 PM) 57 bpm (09/25/21 10:13 AM) Blood Pressure [90-138/55-84 mm Hg] 123/78mm Hg (09/25/21 3:43 PM) 121/72mm Hg (09/25/21 10:13 AM) 126/85mm Hg (09/25/21 8:24 AM) Respiratory Rate [16-30 br/min] 20 br/min (09/25/21 3:43 PM) 22 br/min (09/25/21 1:48 PM) 18 br/min (09/25/21 10:13 AM) Temperature [96.8-100.4 DegF] 97.6 DegF (09/25/21 8:24 AM) 97.7 DegF (09/25/21 7:59 AM) 98.0 DegF (09/25/21 7:17 AM) Mode of Delivery (Oxygen) Room air (09/25/21 3:43 PM) Room air (09/25/21 1:48 PM) Room air (09/25/21 10:13 AM) Blood pressure sites Arm, left (09/25/21 3:43 PM) Arm, left (09/25/21 10:13 AM) Arm, left (09/25/21 8:24 AM) Temperature Route Oral (09/25/21 8:24 AM) Oral (09/25/21 7:59 AM) Oral (09/25/21 7:17 AM) Social History Social History Type Response Smoking Status Former smoker, quit more than 30 days ago entered on: 10/25/18 Sex
--- OUTSIDE RECORDS SUMMARY | 2022-12-05 08:34 | XMS_ITS | Continuity of Care Document ---
Author Name Unknown Organization [facility] Address [address] [place] [id number]- Care Team Providers Care Lumber Sorter Machine Name Role Phone Daniella Rocha MD Primary Care Physician Encounter [facility] [place] Date(s): 04/19/22 - 05/19/22 [facility] [address] [address]- Attending Physician: Bryon Sunshine Admitting Physician: Bryon Sunshine Referring Physician: AdmBryon patel Allergies, Adverse Reactions, Alerts No Known Allergies [...] Team Personnel Name: Daniella Rocha MD Position: S Outreach Member Role: PCP Address: Address: [address] [place] [address]- Care Team Related Persons Name: RUPA CARRILLO Address: home [address] [address] Name: RODGER CARRILLO Name: MARTINEZ CHRISTINE Address: home [address] [address] Name: SERINA CHRISTINE Address: [id number] Address: home [address] [place] [address] [place]
--- OUTSIDE RECORDS SUMMARY | 2022-12-05 08:34 | XMS_ITS | Continuity of Care Document ---
Author Name Unknown Organization [facility] Address [address] [place] [address]- Care Team Providers Care Speedboat Operator Name Role Phone Daniella Rocha MD Primary Care Physician Encounter [facility] Date(s): 03/22/22 - 04/21/22 [facility] [address] [address]- Allergies, Adverse Reactions, Alerts No Known Allergies [...] Team Personnel Name: Daniella Rocha MD Position: [facility] Outreach Member Role: PCP Address: Address: [address] [place] [address]- Care Team Related Persons Name: RUPA CARRILLO Address: home [address] [address] Name: RODGER CARRILLO Name: MARTINEZ CHRISTINE Address: home [address] [address] Name: SERINA CHRISTINE Address: [address] Address: home [address] [address]
--- OUTSIDE RECORDS SUMMARY | 2022-12-05 08:34 | XMS_ITS | Continuity of Care Document ---
Author Name Unknown Organization [facility] Address [address] [place] [address]- Care Team Providers Care Cook Camp Name Role Phone Josefina CARPENTER, Daniella Payton Primary Care Physician Encounter [facility] Date(s): 02/27/19 - 06/14/[address] [address] Attending Physician: Not on Staff, Attending MD Referring Physician: Daniella Rocha MD Allergies, Adverse Reactions, Alerts Substance Reaction Severity [...] 01/19/19 5:36:37 EDT, Route to Pharmacy Electronically, [id number], [facility] Start Date: 01/19/19 Status: [...] 01/19/19 5:36:42 EDT, Route to Pharmacy Electronically, [id number], [facility], P... Start Date: 01/19/19 Status: Ordered [...]
--- OUTSIDE RECORDS SUMMARY | 2022-12-05 08:34 | XMS_ITS | Continuity of Care Document ---
Author Name Unknown Organization [facility] Address [address] [place] [address]- Care Team Providers Care Electronics Inspector Name Role Phone Daniella Rocha MD Primary Care Physician Encounter [facility] Date(s): 03/20/22 - 04/19/22 [facility] [address] [address]- Allergies, Adverse Reactions, Alerts No Known Allergies [...] Team Personnel Name: Daniella Rocha MD Position: [facility] Outreach Member Role: PCP Address: Address: [address] [place] [id number]- Care Team Related Persons Name: RUPA CARRILLO Address: home [address] [address] Name: RODGER CARRILLO Name: MARTINEZ CHRISTINE Address: home [address] [address] Name: SERINA CHRISTINE Address: [id number] Address: home [address] [address]
[2022-12-05 08:49] LABS: HCG Quantitative 13800 mIU/mL
[2022-12-05 08:59] LABS: UPreg QC Valid YES; Urine Pregnancy POSITIVE (NEGATIVE)
[2022-12-05 09:00] LABS: Appearance Urine Cloudy; Color Urine Yellow; Glucose Urine UA Negative (Negative); Leukocyte Esterase Urine Negative (Negative); Nitrite Urine Negative (Negative); PH 8.5 (5.0-9.0); Specific Gravity - Urine 1.015 (1.005-1.025); Urine Blood Negative (Negative); Urine Ketones Negative (Negative); Urine Protein Negative (Neg-Trace)
== END 2022-12-05 10:43 | disposition home or self-care (01) ==
PROVIDERS: Physician Assistant; Emergency Provider Student in an Organized Health Care Education/Training Program; PCP Internal Medicine
DX: O26.91 Pregnancy related conditions, unspecified, first trimester (principal); R42 Dizziness and giddiness; Z3A.01 Less than 8 weeks gestation of pregnancy
CPT/HCPCS: 36415; 76801; 76817; 80048; 80076; 81003; 81025; 83690; 84702; 85025; 86900; 86901; 93005; 99284

== ENCOUNTER 2023-01-03 10:02 | Emergency (ER) | payer MEDICAID, SELFPAY ==
--- NOTE | ~2023-01-03 | US_ITS ---
EXAMINATION: US OBSTETRICAL ULTRASOUND CLINICAL INFORMATION: 27-year-old female with , cramping and bleeding COMPARISON: 12/05/2022 LMP: 10/19/2022 Previous ultrasound 12/05/2022. Gestational age by maternal dates is 10 weeks 6 days Estimated date of delivery by maternal dates is 07/26/2023. TECHNIQUE: Transabdominal and transvaginal FINDINGS: There is a single intrauterine gestational sac with visible yolk sac, embryo/fetus, and cardiac activity. There is no significant subchorionic hemorrhage or hematoma. HR: 156 beats per minute. There is gestational sac, yolk sac and pole identified BARBARA (estimated date of delivery): 07/26/2023 +/- 4 days. There is a small subchorionic hemorrhage measured 2.5 x 1.3 x 0.7 cm MATERNAL ADNEXA: The right maternal ovary measures 2.5 x 2.1 x 1.7 cm. Unremarkable The left maternal ovary measures 2.6 x 1.5 x 1.9 cm. Unremarkable There is no significant maternal adnexal mass. No maternal pelvic ascites. US/US OB <= 14 weeks fetus IMPRESSION: 1. Single intrauterine gestation with ultrasound gestational age of 10 weeks 6 days +/- 4 days. 2. Estimated date of delivery is 07/26/2023 +/- 4 days. 3. Small subchorionic hemorrhage
[2023-01-03 10:12] VITALS: BP 132/71; PULSE 70; RESP 18; TEMP 36.6; O2SAT 98; BMI 36.3
--- NOTE | 2023-01-03 11:50 | ED_ITS ---
HPI - General Adult General Chief complaint: General Medical Stated complaint: Back Stomach Pain 11 Wks Time Seen by Provider: 01/03/23 11:50 Source: patient Mode of arrival: ambulatory Limitations: no limitations History of Present Illness HPI narrative: 27 yo female who is currently 12 weeks and follows at [facility] who presents to the ER for evaluation of bilateral middle back pain, lower abdominal cramping, diarrhea for the last 4 days. She reports ongoing nausea and vomiting since she learned she was . She has had some blood in her urine/intermittent spotting for the last several weeks and had a U/S at [facility] showing what sounds like a subchorionic hemorrhage. She states the pain in her back is located at the bottom of her lungs and takes her breath away at times. It comes and goes. No cough. No URI symptoms. She called her OB yesterday who told her to come to [facility] but she came to [place] today because she found early childhood associate teacher and it was closer. MD complaint: back pain, lower abdominal cramping, diarrhea, N/V Onset (ago): day(s) (4) Location: back and abdomen Radiation: back Severity: moderate Quality: stabbing and sharp Pain Consistency: intermittent Relieving factors: none Exacerbating factors: none Associated symptoms: headaches, malaise, nausea/vomiting and shortness of breath Treatments prior to arrival: none Related Data Previous Rx's Medication Instructions Recorded omeprazole magnesium 10 mg oral 20 mg PO DAILY #30 ea 07/11/20 suspension,delayed release (Prilosec) acetaminophen 325 mg capsule 650 mg (2 x 325 mg) PO Q6H PRN 07/28/20 pain 7 days #56 caps oxycodone-acetaminophen 5 mg-325 1 tab PO Q6H PRN pain #15 tabs 08/05/20 mg tablet oxycodone-acetaminophen 5 mg-325 1 tab PO TID PRN pain #9 tabs 03/20/21 mg tablet (Percocet) polyethylene glycol 3350 17 17 g PO BID PRN constipation #119 09/25/21 gram/dose oral powder (Miralax) grams acetaminophen 500 mg tablet 500 mg PO Q6H PRN pain #30 tabs 09/29/21 (Tylenol Extra Strength) polyethylene glycol 3350 17 17 g PO BID #238 grams 09/29/21 gram/dose oral powder (Miralax) ondansetron 4 mg disintegrating 4 mg PO Q8H PRN nausea and 01/03/23 tablet vomiting #7 tabs Allergies Allergy/AdvReac Type Severity Reaction Status Date / Time pollen extracts [POLLEN] Allergy Unknown ITCHY EYES Verified 07/27/22 11:14 ibuprofen [IBUPROFEN] AdvReac Mild Heartburn Verified 07/27/22 11:14 Review of Systems 2 Review of Systems: Yes all other systems are reviewed and are negative PENDING SALE TO [facility] Past Medical History Medical History (Updated 01/03/23 @ 15:19 by POLY Dumont) No known health problems Surgical History (Updated 07/27/22 @ 11:15 by BRAVO Keane) Hx of hand surgery Previous section History of appendectomy Social History Social History (Updated 07/27/22 @ 11:18 by BRAVO Keane) Alcohol intake: never Patient Tobacco Use Status: Current everyday Tobacco user Smoked in Last 30 Days: No Use of substances other than those prescribed or required for medical reasons: Yes Substance Use Type: Marijuana Advance Directives: No Patient : Yes 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 Oriented X3. No acute distress. Head: normocephalic, atraumatic. Eyes: Pupils equal, round and reactive to light. ENT: Pharynx normal. No tonsillar swelling or exudate. Neck: Normal inspection. Neck supple. CVS: Normal heart rate and rhythm. Pulses normal. Respiratory: No respiratory distress. Breath sounds normal. Abdomen: Soft and nontender. +BS x4. Pelvic deferred Back: soft tissue tenderness and palpable spasm of the rhomboids Skin: Skin warm and dry. Normal skin color. Normal skin turgor. No rashes. Extremities: No lower extremity edema. No joint swelling. Neuro/psych: Oriented X 3. No motor deficit. No sensory deficit. CN II-XII intact. Normal speech and cognition. Medications Administered Discontinued Medications Generic Name Dose Route Start Last Admin Trade Name Andry PRN Reason Stop Dose Admin Sodium Chloride 1,000 mls @ 999 mls/hr 01/03/23 12:15 01/03/23 14:52 Ns IVCONT 01/03/23 13:15 Infused .Q1H1M LINN Infusion Ondansetron HCl 4 mg 01/03/23 12:14 01/03/23 13:06 Ondansetron Hcl 4 Mg/2 Ml Vial IVPUSH 01/03/23 12:15 4 mg ONCE ONE Administration Potassium Chloride 40 meq 01/03/23 14:29 01/03/23 14:59 Potassium Chloride Er 20 Meq Tab.Er.Prt PO 01/03/23 14:30 40 meq ONCE ONE Administration Potassium Chloride 40 meq 01/03/23 15:14 01/03/23 15:17 Potassium Chloride Er 20 Meq Tab.Er.Prt PO 01/03/23 15:15 40 meq ONCE ONE Administration Medical Decision Making Medical Decision Making [facility] Narrative: 27 yo currently 11-12 weeks presenting with N/V/D and lower abdominal cramping x4 days. Vomiting has been violent and causing back pains and taking her breath away. No SOB at rest. No chest pain. Exam reveals soft tissue tenderness and palpable spasm in the back. No CVA tenderness and no urinary symptoms. Most likely muscular back pain Labs showing no leukocytosis. UA negative for infection. K low 3.2 due to GI losses Pelvic/OB U/S showing HR 150s, small LINN. Patient's mother is in the ER with similar symptoms. Patient's symptoms are most likely viral in etiology. We discussed this and current management. she is tolerating PO. oral K repleted. comfortable w/ discharge home with close OB follow up Differential Diagnosis Differential Diagnoses: The differential diagnosis associated with the presentation includes gastroenteritis, cholecystitis, hyperemesis gravidarum, pancreatitis, threatened Admission/Observation Consideration of admission/observation: Escalation of care including admission/observation considered Lab Data [facility] Lab Attestation statement: I reviewed the patient's lab results. no leukocytosis, mild hypokalemia 01/03/23 12:39 01/03/23 13:54 Labs: Lab Results 01/03/23 01/03/23 Range/Units 12:39 13:54 WBC 10.0 (4.8-10.8) X10*3/uL RBC 4.36 (4.20-5.50) X10*6/uL Hgb 12.4 (12.0-16.0) g/dl Hct 36.9 L (37.0-47.0) % MCV 84.6 (80.0-98.0) fL MCH 28.4 (27.0-33.0) pg MCHC 33.6 (31.0-35.0) g/dl RDW 12.6 (11.0-16.0) % Plt Count 336 (160-400) X10*3/uL MPV 9.8 (9.4-12.3) fL Immature Gran % (Auto) 0.3 (0.0-0.4) % Neut % (Auto) 72.3 (45-73) % Lymph % (Auto) 22.2 (20-40) % [place] % (Auto) 4.4 (2-11) % Eos % (Auto) 0.5 (0-4) % Baso % (Auto) 0.3 (0-2) % Lymph # (Auto) 2.2 (1.2-4.9) X10*3/uL [place] # (Auto) 0.4 (0.1-1.2) X10*3/uL Eos # (Auto) 0.1 (0.0-0.4) X10*3/uL Baso # (Auto) 0.0 (0.0-0.2) X10*3/uL Abs Immat Gran (auto) 0.03 (0.00-0.03) X10*3/uL Absolute Neuts (auto) 7.3 (2.0-8.3) x10*3/uL Absolute Nucleated RBC 0.000 (0.0-0.012) X10*3/uL Nucleated RBC % (auto) 0.0 (0.0-0.2) /100WBC Sodium 139 (135-145) mmol/L Potassium 3.2 L (3.3-5.1) mmol/L Chloride 110 H (96-108) mmol/L Carbon Dioxide 21 L (22-29) mmol/L Anion Gap 11 L (12-20) BUN 4 L (9-16) mg/dL Creatinine 0.54 (0.5-1.4) mg/dL Estim Creat Clear Calc 182.2 Estimated GFR > 60 Random Glucose 85 (60-115) mg/dL Calcium 8.8 (8.4-10.2) mg/dL Magnesium 2.0 (1.6-2.6) mg/dL Total Bilirubin 0.4 (0.0-1.0) mg/dL Direct Bilirubin 0.2 (0.0-0.5) mg/dL AST 8 (5-31) U/L ALT < 5 (0-31) U/L Alkaline Phosphatase 57 (39-117) U/L Total Protein 6.8 (6.5-8.0) g/dL Albumin 3.9 (3.5-5.0) g/dL Lipase 11 (8-78) U/L Beta HCG, Quant 19697 mIU/mL Urine Color Yellow Urine Appearance Turbid Urine pH 8.0 (5.0-9.0) Ur Specific [place] 1.020 (1.005-1.025) Urine Protein Negative (Neg-Trace) mg/dL Urine Glucose (UA) Negative (Negative) mg/dL Urine Ketones Trace (Negative) mg/dL Urine Blood Negative (Negative) Urine Nitrite Negative (Negative) Ur Leukocyte Esterase Negative (Negative) Influenza Type A (PCR) NEGATIVE (Negative) Influenza Type B (PCR) NEGATIVE (Negative) RSV RNA Qual (PCR) NEGATIVE (Negative) SARS-CoV-2 RNA (RT-PCR) NEGATIVE (Negative) Independent Interpretation I performed an independent interpretation of an: Ultrasound Interpretation: IUP, HR 150s, agree w/ radiology read Radiology Impression Discussion of test interpretation with radiology: I have reviewed the radiologist's reading. Radiologist Impression: US/US OB <= 14 weeks fetus IMPRESSION: 1. Single intrauterine gestation with ultrasound gestational age of 10 weeks 6 days +/- 4 days. 2. Estimated date of delivery is 07/26/2023 +/- 4 days. 3. Small subchorionic hemorrhage External Record Review External record reviewed: Office record, Outpatient record, Prior outpatient labs and Prior outpatient radiology Prescription Management I considered prescription management with: Other (antiemetics) Critical Care Time Critical Care Time Critical Care Time: No Discharge Plan Discharge Clinical Impression: Gastroenteritis Patient Disposition: Home, Self-Care Instructions: Gastroenteritis (DC) Additional Instructions: You lab workup today was unremarkable. Your urine test was negative for infection. Ultrasound showed a small subchorionic hemorrhage. This will be monitored by your OB and can cause some bleeding. You most likely have a viral GI bug also known as gastroenteritis. Treatment is supportive care, symptoms usually resolve on their own in 48-72 hours. Recommend rest and plenty of oral hydration. Stick to a bland diet like soup and toast while you are not feeling well. Take the prescribed medication as needed for nausea. Also recommend Unisom and B6 at night to prevent nausea and vomiting the next day. Follow up with your HEEL SCOURER. If you develop new or worsening symptoms call 911 or come back to the ER for further evaluation. Prescriptions: New ondansetron 4 mg tablet,disintegrating 4 mg PO Q8H PRN (Reason: nausea and vomiting) Qty: 7 0RF No Action Prilosec 10 mg susp,delayed release for recon 20 mg PO DAILY Qty: 30 0RF acetaminophen 325 mg capsule 650 mg PO Q6H PRN (Reason: pain) 7 Days Qty: 56 0RF oxycodone-acetaminophen 5-325 mg tablet 1 tab PO Q6H PRN (Reason: pain) Qty: 15 0RF polyethylene glycol 3350 [Miralax] 17 gram/dose powder 17 g PO BID PRN (Reason: constipation) Qty: 119 0RF polyethylene glycol 3350 [Miralax] 17 gram/dose powder 17 g PO BID Qty: 238 0RF acetaminophen [Tylenol Extra Strength] 500 mg tablet 500 mg PO Q6H PRN (Reason: pain) Qty: 30 0RF oxycodone-acetaminophen [Percocet] 5-325 mg tablet 1 tab PO TID PRN (Reason: pain) Qty: 9 0RF Referrals: Daniella Rocha MD [Primary Care Provider] - Interventions: ED Discharge Assessment Last Done: 01/03/23 15:40 Discharge Date/Time: 01/03/23 15:43
[2023-01-03 12:03] VITALS: BP 130/73; PULSE 74; RESP 18; TEMP 36.8; O2SAT 100
--- OUTSIDE RECORDS SUMMARY | 2023-01-03 12:24 | XMS_ITS | Continuity of Care Document ---
Author Name Unknown Organization [facility] Address [address] [place] [address]- Care Team Providers Care Stock Transfer Clerk Name Role Phone Daniella Rocha MD Primary Care Physician Encounter [facility] Date(s): 11/29/22 - 12/29/[address] [address] Allergies, Adverse Reactions, Alerts Substance Reaction Severity Status ibuprofen Active Immunizations Given and Recorded Vaccine Date Status Refusal Reason Measles/Mumps/Rubella Virus Vaccine 01/16/19 Given tetanus/diphtheria/pertussis, acel(Tdap) 10/24/18 Given Medications M- Plus oral tablet 1 tablet, By Mouth, Daily, # 30 tablet, 9 Refills, Maintenance, 12/26/22 9:24:00 EDT, [facility]/pharmacy #[id number], Partial fill upon patient request if the prescription is for a schedule II opioid drug., 1 tablet By Mouth Daily, 166, cm, 12/26/22 8:33:00 EDT,... 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 History of marijuana use Confirmed Active Obesity Confirmed Active Rubella non-immune status, antepartum Confirmed Active Severe obesity (BMI 35.0-39.9) with comorbidity Confirmed Active Maternal varicella, non-immune Confirmed Active Social History Social History Type Response Smoking Status Former smoker, quit more than 30 days ago; Other: Quit when preg with son; entered on: 12/26/22 Sex Patient Care team information Care Team Personnel Name: Daniella Rocha MD Position: S Outreach Member Role: PCP Address: Address: [address] [place] [address]- Care Team Related Persons Name: RUPA CARRILLO Address: home [address] [address] Name: RODGER CARRILLO Name: MARTINEZ CHRISTINE Address: home [address] [address] Name: SERINA CHRISTINE Address: [id number] Address: [address] [place] [address] [place]
[2023-01-03 12:44] LABS: MANUAL DIFF FLAG NO
[2023-01-03 12:46] LABS: Basophils Percent Auto 0.3 % (0-2); Eosinophils Absolute Auto 0.1 X10*3/uL (0.0-0.4); Eosinophils Percent Auto 0.5 % (0-4); Hematocrit 36.9 % (37.0-47.0); Hemoglobin 12.4 g/dl (12.0-16.0); Imm Gran Abs Auto 0.03 X10*3/uL (0.00-0.03); Imm Gran Pct Auto 0.3 % (0.0-0.4); Lymphocytes Absolute Auto 2.2 X10*3/uL (1.2-4.9); Lymphocytes Percent Auto 22.2 % (20-40); Mean Corpuscular HGB Conc 33.6 g/dl (31.0-35.0); Mean Corpuscular Hemoglobin 28.4 pg (27.0-33.0); Mean Corpuscular Volume 84.6 fL (80.0-98.0); Mean Platelet Volume 9.8 fL (9.4-12.3); Monocytes Absolute Auto 0.4 X10*3/uL (0.1-1.2); Monocytes Percent Auto 4.4 % (2-11); Neutrophils Absolute Auto 7.3 x10*3/uL (2.0-8.3); Neutrophils Percent Auto 72.3 % (45-73); Platelet Count 336 X10*3/uL (160-400); Red Blood Count 4.36 X10*6/uL (4.20-5.50); Red Cell Distribution Width 12.6 % (11.0-16.0)
[2023-01-03 12:48] LABS: Appearance Urine Turbid; Color Urine Yellow; Glucose Urine UA Negative (Negative); Leukocyte Esterase Urine Negative (Negative); Nitrite Urine Negative (Negative); Urine Blood Negative (Negative); Urine Ketones Trace mg/dL (Negative); Urine Protein Negative (Neg-Trace)
[2023-01-03] MEDS: 0.9 % Sodium Chloride 1,000 ML 999 ML IVCONT (12:50)
[2023-01-03] MEDS: ondansetron HCL 4 MG/2 ML VIAL IVPUSH (13:06)
[2023-01-03 13:23] LABS: Influenza A PCR NEGATIVE (Negative); Influenza B PCR NEGATIVE (Negative); Resp Syncy Virus RNA Qual PCR NEGATIVE (Negative); SARS COV2 PCR INHOUSE NEGATIVE (Negative)
--- NOTE | 2023-01-03 13:40 | PC.NURSE ---
tech to redraw labs
[2023-01-03 14:26] LABS: Alanine Aminotransferase < 5 U/L (0-31); Albumin Level 3.9 g/dL (3.5-5.0); Alkaline Phosphatase 57 U/L (39-117); Anion Gap 11 (12-20); Aspartate Amino Transferase 8 U/L (5-31); Bilirubin Direct 0.2 mg/dL (0.0-0.5); Bilirubin Total 0.4 mg/dL (0.0-1.0); Blood Urea Nitrogen 4 mg/dL (9-16); Calcium 8.8 mg/dL (8.4-10.2); Carbon Dioxide 21 mmol/L (22-29); Chloride 110 mmol/L (96-108); Creatinine Clr Calc Pharmacy 182.2; Estimated Glomerular Filt Rate > 60; Glucose Random 85 mg/dL (60-115); Lipase 11 U/L (8-78); Potassium 3.2 mmol/L (3.3-5.1); Sodium 139 mmol/L (135-145); Total Protein 6.8 g/dL (6.5-8.0)
[2023-01-03] MEDS: Potassium Chloride ER 20 MEQ TAB.ER.PRT 40 MEQ PO ×2 (14:59→15:17)
[2023-01-03 15:00] VITALS: BP 126/85; PULSE 66; RESP 16; TEMP 36.9; O2SAT 100
--- NOTE | 2023-01-03 15:20 | PC.NURSE ---
Pt A/OX4, pt states decrease in lower back pain from 10/10 to 4/10. Pt unable to swallow K+ po in pudding, reordered PO K+ pt able to swallow pills whole with water, tolerated well. Pt N/V improved with IV Zofran.
== END 2023-01-03 15:43 | disposition home or self-care (01) ==
PROVIDERS: Physician Assistant; Emergency Provider Emergency Medicine; PCP Internal Medicine
DX: O26.91 Pregnancy related conditions, unspecified, first trimester (principal); Z3A.12 12 weeks gestation of pregnancy; K52.9 Noninfective gastroenteritis and colitis, unspecified; Z20.822 Contact with and (suspected) exposure to COVID-19; Z20.828 Contact with and (suspected) exposure to other viral communicable diseases; Z79.899 Other long term (current) drug therapy
CPT/HCPCS: 0241U; 76801; 80048; 80076; 81003; 83690; 83735; 84702; 85025; 96361; 96374; 99284; J2405

== ENCOUNTER 2023-03-17 07:42 | Emergency (ER) | payer MEDICAID, SELFPAY ==
[2023-03-17 07:57] VITALS: BP 107/56; PULSE 69; RESP 16; TEMP 36.2; O2SAT 98; BMI 38.6
--- NOTE | 2023-03-17 08:04 | ECG_ITS ---
Test Reason : chest discomfort Blood Pressure : / mmHG Vent. Rate : 064 BPM Atrial Rate : 064 BPM P-R Int : 138 ms QRS Dur : 096 ms QT Int : 420 ms P-R-T Axes : 007 020 044 degrees QTc Int : 433 ms Normal sinus rhythm Normal ECG When compared with ECG of 05-DEC-2022 07:50, No significant change was found Referred By: Generic ED Physician Electronically Signed By:WILLIAM SCOTT
[2023-03-17 08:24] LABS: IDNOW Serial# 58CA691E; Strep A Nucleic Acid Negative (Negative)
[2023-03-17 09:32] LABS: Influenza A PCR NEGATIVE (Negative); Influenza B PCR NEGATIVE (Negative); Resp Syncy Virus RNA Qual PCR NEGATIVE (Negative); SARS COV2 PCR INHOUSE POSITIVE (Negative)
--- NOTE | 2023-03-17 10:35 | PC.NURSE ---
pt speaking w/ ED provider dr. anderson and got upset with him after provider stated that medications/treatments are hard for patient's who are . dr. anderson also reassured pt that we do not have any labor and delivery services at [facility] - pt then became upset and stated that provider was disrespectful and did not like the way that he was speaking to her. pt tearful and upset/attempting to walk out of ED. POLY cadena and this RN calmed pt down. pt now back in room. respirations even and unlabored.
--- NOTE | 2023-03-17 10:35 | ED.URI ---
HPI - URI/Sore Throat General Chief Complaint: Upper Respiratory Symptoms Stated Complaint: covid + symptons Time Seen by Provider: 03/17/23 10:25 History of Present Illness HPI Narrative: Patient is 27 years old vaccinated x3. Complaining of coughing congestion upper respiratory symptoms have been ongoing the last 3 days. Patient complained of diffuse total body ache. Positive generalized malaise. Patient states she is approximately 21 weeks Related Data Previous Rx's Medication Instructions Recorded omeprazole magnesium 10 mg oral 20 mg PO DAILY #30 ea 07/11/20 suspension,delayed release (Prilosec) acetaminophen 325 mg capsule 650 mg (2 x 325 mg) PO Q6H PRN 07/28/20 pain 7 days #56 caps oxycodone-acetaminophen 5 mg-325 1 tab PO Q6H PRN pain #15 tabs 08/05/20 mg tablet oxycodone-acetaminophen 5 mg-325 1 tab PO TID PRN pain #9 tabs 03/20/21 mg tablet (Percocet) polyethylene glycol 3350 17 17 g PO BID PRN constipation #119 09/25/21 gram/dose oral powder (Miralax) grams acetaminophen 500 mg tablet 500 mg PO Q6H PRN pain #30 tabs 09/29/21 (Tylenol Extra Strength) polyethylene glycol 3350 17 17 g PO BID #238 grams 09/29/21 gram/dose oral powder (Miralax) ondansetron 4 mg disintegrating 4 mg PO Q8H PRN nausea and 01/03/23 tablet vomiting #7 tabs Allergies Allergy/AdvReac Type Severity Reaction Status Date / Time pollen extracts [POLLEN] Allergy Unknown ITCHY EYES Verified 07/27/22 11:14 ibuprofen [IBUPROFEN] AdvReac Mild Heartburn Verified 07/27/22 11:14 Review of Systems Review of Systems: Positive coughing congestion upper respiratory symptoms. [facility] Past Medical History Attestation statement: The following information was validated with the patient. 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 Oriented X3. No acute distress. Eyes: Pupils equal, round and reactive to light. ENT: Pharynx normal. Neck: Normal inspection. Neck supple. No lymph nodes noted. No crepitus CVS: Normal heart rate and rhythm. Pulses normal. Normal S1 and S2 Respiratory: No respiratory distress. Breath sounds normal. No Wheezing. No rales Abdomen: Fundal height at the level of the umbilicus Skin: Skin warm and dry. Normal skin color. Normal skin turgor. Extremities: No lower extremity edema. Neurovascular intact to all extremities. No Lacerations. No Rash Neuro: Oriented X 3. No motor deficit. No sensory deficit. Moving all extermities. No slurred speech Medical Decision Making Medical Decision Making MDM Narrative: Patient well-appearing O2 sat is 97% on room air. Complaining of decreased p.o. intake suggested to give patient a L of IV fluid. Patient refused. Decide to leave the emergency department. Patient's O2 sats 98% on room air no distress. Not having any abdominal complaints. She is in stable condition. Patient's COVID test came back positive. Differential Diagnosis Differential Diagnoses: The differential diagnosis associated with the presentation includes COVID Admission/Observation Consideration of admission/observation: Escalation of care including admission/observation considered Lab Data Labs: Lab Results 03/17/23 Range/Units 08:10 Influenza Type A (PCR) NEGATIVE (Negative) Influenza Type B (PCR) NEGATIVE (Negative) RSV RNA Qual (PCR) NEGATIVE (Negative) SARS-CoV-2 RNA (RT-PCR) POSITIVE A (Negative) S. pyogenes GrpA CROW Negative (Negative) Chronic Conditions about 21 weeks gestation Discharge Plan Discharge Clinical Impression: Upper respiratory infection, COVID-19 Patient Disposition: Elopement Prescriptions: No Action Prilosec 10 mg susp,delayed release for recon 20 mg PO DAILY Qty: 30 0RF acetaminophen 325 mg capsule 650 mg PO Q6H PRN (Reason: pain) 7 Days Qty: 56 0RF oxycodone-acetaminophen 5-325 mg tablet 1 tab PO Q6H PRN (Reason: pain) Qty: 15 0RF polyethylene glycol 3350 [Miralax] 17 gram/dose powder 17 g PO BID PRN (Reason: constipation) Qty: 119 0RF polyethylene glycol 3350 [Miralax] 17 gram/dose powder 17 g PO BID Qty: 238 0RF acetaminophen [Tylenol Extra Strength] 500 mg tablet 500 mg PO Q6H PRN (Reason: pain) Qty: 30 0RF oxycodone-acetaminophen [Percocet] 5-325 mg tablet 1 tab PO TID PRN (Reason: pain) Qty: 9 0RF ondansetron 4 mg tablet,disintegrating 4 mg PO Q8H PRN (Reason: nausea and vomiting) Qty: 7 0RF
[2023-03-17 10:38] VITALS: BP 132/73; PULSE 81; RESP 16; TEMP 36.6; O2SAT 99
[2023-03-17] MEDS: 0.9 % Sodium Chloride 1,000 ML 999 ML IV (10:57)
[2023-03-17 11:02] LABS: MANUAL DIFF FLAG NO
--- NOTE | 2023-03-17 11:03 | PC.NURSE ---
a&ox3, vss and up to date at this time. 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 pt comes in today d/t UR sx and generalized body aches x a few days. pt denies any fever/chills. currently afebrile. pt also c/o non-radiating chest discomfort. pt states that discomfort increases upon inspiration/with cough. no sob/wob noted. at this time. respirations even and unlabored. 22gIV placed in the left forearm - labs drawn and sent to lab. IV fluids administered per provider order. pt unable to urinate d/t decreased PO intake - will obtain urine sample when able. pt resting comfortably and in no apparent distress at this time. call keane placed within reach.
--- OUTSIDE RECORDS SUMMARY | 2023-03-17 11:04 | XMS_ITS | Continuity of Care Document ---
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 Name Role Phone Daniella Rocha MD Primary Care Physician [place] [facility] [place] 01[place]25[place] - 01/25/[address] [id number]- Discharge Disposition: A-D/C Walkout Attending Physician: Not on Staff, Attending MD Admitting Physician: Not on Staff, Admitting MD Referring Physician: Not on Staff, Referring MD Allergies, Adverse Reactions, Alerts Substance Reaction Severity Status ibuprofen Active Immunizations Given and Recorded Vaccine Date Status Refusal Reason Measles/Mumps/Rubella Virus Vaccine 01/16/19 Given tetanus/diphtheria/pertussis, acel(Tdap) 10/24/18 Given Medications aspirin 81 mg oral delayed release tablet See Instructions, 2 tablet By Mouth Daily at bedtime, # 60 tablet, Refills 8, Tot. Refills 8, Maintenance, 01/16/23 10:04:00 EDT, Instructions Replace Required Details, Route to Pharmacy Electronically, [facility]/pharmacy #[id number], Partial fill upon patient re... Start Date: 01/16/23 Status: Ordered M- Plus oral tablet 1 tablet, By Mouth, Daily, # 30 tablet, 9 Refills, Maintenance, 12/26/22 9:24:00 EDT, [facility]pharmacy #[id number], Partial fill upon patient request if the prescription is for a schedule II opioid drug., 1 tablet By Mouth Daily, 166, cm, 12/26/22 8:33:00 EDT,... Start Date: 12/26/22 Status: Ordered pyridoxine 25 mg oral tablet 1 tablet = 25 mg, By Mouth, 3 times a day, PRN Nausea & Vomiting, # 100 tablet, 6 Refills, Maintenance, 01/16/23 10:04:00 EDT, Tablet, [id number], Partial fill upon patient request if theprescription is for a schedule II opioid drug., 166, cm... Start Date: 01/16/23 Status: Ordered Reglan 5 mg oral tablet See Instructions, 1 tablet By Mouth as needed up to 3 times daily, # 30 tablet, 1 Refills, Maintenance, 01/16/23 10:04:00 EDT, [id number], Partial fill upon patient request if the prescription is for a schedule II opioid drug., 166, cm, ... Start Date: 01/16/23 Status: Ordered Tylenol 325 mg oral capsule 2 capsule = 650 mg, By Mouth, Every 4 hours, PRN as needed for pain, # 30 capsule, 0 Refills, Maintenance, 01/25/23 13:49:00 EDT, Capsule, [id number], Partial fill upon patient request if theprescription is for a schedule II opioid drug., 166... Start Date: 01/25/23 Status: Ordered Unisom 25 mg oral tablet See Instructions, take 1 tablet by mouth at bedtime, # 60 tablet, 1 Refills, Maintenance, 01/16/23 10:04:00 EDT, [id number], Partial fill upon patient request if the prescription is for a schedule II opioid drug., 166, cm, 01/16/23 9:45:00 EDT... Start Date: 01/16/23 Status: Ordered Problem List Condition Confirmation Course [...] S Outreach Member Role: PCP Address: Address: [address] [place] [id number]- Care Team Related Persons Name: RUPA CARRILLO Address: home [address] [address] Name: RODGER CARRILLO Name: MARTINEZ CHRISTINE Address: home [address] [place] [address] Name: SERINA CHRISTINE Address: [id number] Address: home [address] [place] [address]
--- OUTSIDE RECORDS SUMMARY | 2023-03-17 11:05 | XMS_ITS | Continuity of Care Document ---
Author Name Unknown Organization [facility] ter Address [address] [place] [id number]- Care Team Providers Care Vending Machine Attendant Name Role Phone Josefina CARPENTER, Daniella Payton Primary Care Phys[place] [facility] [place]): [place] - 01/25/[address] [id number] Discharge Disposition: A-D/C Home Attending Physician: Chel Mckay MD Admitting Physician: Chel Mckay MD Referring Physician: Chel Mckay MD Allergies, Adverse Reactions, Alerts Substance Reaction [...] Replace Required Details, Route to Pharmacy Electronically, [facility]/pharmacy #[id number], Partial fill upon patient re... Start Date: 01/16/23 Status: Ordered M-Mariela Plus oral tablet 1 tablet, By Mouth, Daily, # 30 tablet, 9 Refills, Maintenance, 12/26/22 9:24:00 EDT, [facility]/pharmacy #[id number], Partial fill upon patient request if [...] drug., 166... Start Date: 01/25/23 Status: Ordered Tylenol 325 mg oral tablet 975 mg, Tablet, By Mouth, Once, PRN for Pain , Moderate, Routine, 01/25/23 10:22:00 EDT Start Date: 01/25/23 Stop Date: 01/25/23 Status: Completed Unisom 25 mg oral tablet See Instructions, [...] Confirmed Active Maternal varicella, non-immune Confirmed Active Results Orders for Microbiology Reports Name Date Urine Culture 01/25/23 Microbiology Reports TEST:Urine Culture STATUS:Auth (Verified) BODY SITE: SOURCE:URINE COLLECTED DATE/TIME:01/25/23 9:18 AM Urine Culture SPECIMEN DESCRIPTION : URINE CLEAN CATCH/MIDSTREAM SPECIAL REQUESTS : NONE CULTURE : Mixed bacterial mariposa, indicative of urogenital contamination. REPORT STATUS : FINAL 01/26/2023 Radiology Reports * Exam Date Time Procedure Performing Provider Status 01/25/23 12:01 PM US Abdominal Doppler Comp Karina Altamirano; Modified Notes: (US Abdominal Doppler Comp) Reason For Exam: Pain RESULT: US Abdominal Doppler Comp US Pelvic Non-Ob Ltd or F/U, US Abdominal Doppler Comp Reason: Pain; Clinical Question(s): Ovarian Cyst; 13w , RLQ pain, ovarian torsion?, s p appendectomy; Order Comment: US Pelvic Non-Ob Comp Prep. COMPARISON: 09/25/2021 TECHNIQUE: Limited transabdominal pelvic ultrasound of the ovaries with grayscale, color Doppler, and spectral Doppler analysis. FINDINGS: Examination somewhat limited due to patient body habitus and overlying bowel gas. RIGHT OVARY: Size: 2.9 x 1.6 x 2.0 cm, volume 4.9 cc. Morphology: Normal echotexture. No pathologic cysts or mass. Normal arterial and venous waveforms. LEFT OVARY: Size: 2.3 x 1.7 x 2.2 cm, volume 4.3 cc. Morphology: Normal echotexture. No pathologic cysts or mass. Normal arterial and venous waveforms. ADNEXA: Normal. No adnexal masses or fluid collections. IMPRESSION: Normal ovaries with no evidence of torsion. WSN: [id number] Ordering Physician: Geri Carias Dictated By: Antonio Joseph MD Dictated Date/Time: 01/25/23 12:15 p Reviewed By: Antonio Joseph MD Signed By: Antonio Joseph MD Signed Date/Time: 01/25/23 12:15 pm Transcribed By: GHADA Transcribed Date/Time: 01/25/23 12:12 pm ADDENDUM: US Abdominal Doppler Comp Clarification: The correct description of this study is US Pelvic Non-Ob Ltd or F/U, US Pelvic Doppler Comp. An US Abdominal Doppler Comp was not performed. WSN: [id number] Ordering Physician: Geri Carias Dictated By: Antonio Joseph MD Dictated Date/Time: 01/25/23 3:07 pm Reviewed By: Antonio Joseph MD Signed By: Antonio Joseph MD Signed Date/Time: 01/25/23 3:07 pm Transcribed By: GHADA Transcribed Date/Time: 01/25/23 3:06 pm * Exam Date Time Procedure Performing Provider Status 01/25/23 12:01 PM US Pelvic Non-Ob Ltd or F/U Karina Altamirano; Modified Notes: (US Pelvic Non-Ob Ltd or F/U) Reason For Exam: Pain ADDENDUM: US Pelvic Non-Ob Ltd or F/U Clarification: The correct description of this study is US Pelvic Non-Ob Ltd or F/U, US Pelvic Doppler Comp. An US Abdominal Doppler Comp was not performed. WSN: [id number] Ordering Physician: Geri Carias Dictated By: Antonio Joseph MD Dictated Date/Time: 01/25/23 3:07 pm Reviewed By: Antonio Joseph MD Signed By: Antonio Joseph MD Signed Date/Time: 01/25/23 3:07 pm Transcribed By: GHADA Transcribed Date/Time: 01/25/23 3:06 pm RESULT: US Pelvic Non-Ob Ltd or F/U US Pelvic Non-Ob Ltd or F/U, US Abdominal Doppler Comp Reason: Pain; Clinical Question(s): Ovarian Cyst; 13w , RLQ pain, ovarian torsion?, s p appendectomy; Order Comment: US Pelvic Non-Ob Comp Prep. COMPARISON: 09/25/2021 TECHNIQUE: Limited transabdominal pelvic ultrasound of the ovaries with grayscale, color Doppler, and spectral Doppler analysis. FINDINGS: Examination somewhat limited due to patient body habitus and overlying bowel gas. RIGHT OVARY: Size: 2.9 x 1.6 x 2.0 cm, volume 4.9 cc. Morphology: Normal echotexture. No pathologic cysts or mass. Normal arterial and venous waveforms. LEFT OVARY: Size: 2.3 x 1.7 x 2.2 cm, volume 4.3 cc. Morphology: Normal echotexture. No pathologic cysts or mass. Normal arterial and venous waveforms. ADNEXA: Normal. No adnexal masses or fluid collections. IMPRESSION: Normal ovaries with no evidence of torsion. WSN: [id number] Ordering Physician: Geri Carias Dictated By: Antonio Joseph MD Dictated Date/Time: 01/25/23 12:15 p Reviewed By: Antonio Joseph MD Signed By: Antonio Joseph MD Signed Date/Time: 01/25/23 12:15 pm Transcribed By: GHADA Transcribed Date/Time: 01/25/23 12:12 pm * Exam Date Time Procedure Performing Provider Status 01/25/23 12:41 PM US Pelvic Doppler Comp Ai Altamirano lli; Auth (Verified) Notes: (US Pelvic Doppler Comp) Reason For Exam: pain ? torsion RESULT: US Pelvic Doppler Comp Please see the combined report of the limited ultrasound pelvis of the ovaries and ultrasound pelvic Doppler examination. WSN: [id number] Ordering Physician: Geri Carias Dictated By: Antonio Joseph MD Dictated Date/Time: 01/25/23 3:04 pm Reviewed By: Antonio oJseph MD Signed By: Antonio Joseph MD Signed Date/Time: 01/25/23 3:04 pm Transcribed By: CSB Transcribed Date/Time: 01/25/23 3:03 pm * Exam Date Time Procedure Performing Provider Status 01/25/23 12:01 PM US Retroperitoneum Comp Jabier Altamirano illi; Auth (Verified) Notes: (US Retroperitoneum Comp) Reason For Exam: Pain RESULT: US Retroperitoneum Comp US Retroperitoneum Comp Reason: Pain; Clinical Question(s): Renal Obstruction; nephrolithiasis; Order Comment: US Retroperitoneum Complete Prep COMPARISON: None. FINDINGS: Right kidney: 11.2 cm in length. No hydronephrosis. Normal parenchymal thickness and echotexture. No stones. No suspicious mass. Left kidney: 11.8 cm in length. No hydronephrosis. Normal parenchymal thickness and echotexture. Nostones. No suspicious mass. Urinary bladder: Incompletely distended, but no evidence of stone, mass or debris. Partially imagedgravid uterus identified. IMPRESSION: Normal kidneys and underdistended bladder. WSN: [id number] Ordering Physician: Geri Carias Dictated By: Antonio Joseph MD Dictated Date/Time: 01/25/23 12:11 p Reviewed By: Antonio Joseph MD Signed By: Antonio Joseph MD Signed Date/Time: 01/25/23 12:11 pm Transcribed By: GHADA Transcribed Date/Time: 01/25/23 12:10 pm Vital Signs Most recent to oldest [Reference Range]: 1 2 3 Oxygen Saturation [94-100 %] 99 % (01/25/23 12:29 PM) 98 % (01/25/23 8:03 AM) Blood Pressure [90-138/55-84 mm Hg] 136/73mm Hg (01/25/23 12:29 PM) 126/78mm Hg (01/25/23 8:03 AM) Respiratory Rate [16-30 br/min] 18 br/min (01/25/23 12:29 PM) 19 br/min (01/25/23 10:52 AM) 18 br/min (01/25/23 8:03 AM) Temperature [96.8-100.4 DegF] 98.2 DegF (01/25/23 12:29 PM) 98.7 DegF (01/25/23 8:03 AM) Mode of Delivery (Oxygen) Room air (01/25/23 12:29 PM) Room air (01/25/23 8:03 AM) Blood pressure sites Arm, right (01/25/23 12:29 PM) Temperature Route Oral (01/25/23 12:29 PM) Oral (01/25/23 8:03 AM) Social History Social History Type Response Smoking Status Former smoker, quit more than 30 days ago; Other: Quit when preg with son; entered on: 12/26/22 Sex Note * Ryanne Bradshaw RN: PERFORM Event Display: Discharge/Transfer Note Hospital Authored Date: [id number] Nursing Discharge Note Entered On: 01/25/2023 13:59 EDT Performed On: 01/25/2023 13:59 EDT by Ryanne Bradshaw RN Nursing Discharge Note 2 Discharge Time : 01/25/2023 13:59 EDT Discharge Level of Care at Discharge : Home/Shelter/Foster Care Patient Left Unit Via : Ambulatory Patient Accompanied Off Unit with : Parent DC Instructions Provided & Signed by Pt : Yes Patient Understands D/C Instructions : Yes Patient Instructions Discharge Signed : Yes Did Pt have Specialty Bed or Wound Vac : No Ryanne Bradshaw RN - 01/25/2023 13:59 EDT * Ryanne Bradshaw RN: PERFORM Event Display: Patient Education/Instruction Authored Date: [id number] Inpatient Adult Discharge Instructions [address] [address] Name: CONSTANZA CHRISTINE : 1995 Visit: 01/25/2023 07:54:00 Current Date: 01/25/2023 13:53 Account: [id number] Inpatient Adult Discharge Instructions We would like to thank you for allowing us to assist you with your healthcare needs. The following includes patient education materials and information regarding your injury/illness. Our entire staffstrives to provide an excellent experience for our patients and their families. PLEASE ENSURE YOU FOLLOW-UP PER THE INSTRUCTIONS BELOW! ?? YOUR OPINION IS IMPORTANT TO US! Please complete the survey you may receive by mail or email. Your feedback will be used to make improvements to the healthcare experiences of our patients and their families. Surveys are administered by [employer] ?? If further treatment with your primary care physician or another doctor is recommended, it is important for you to keep the appointment. Call your primary care physician or return to the Emergency Department immediately if your condition worsens, fails to improve, or new symptoms develop. If you need to find a doctor, you can call [facility] Link for a referral at [phone] or toll free at [phone] or log in to [email or web address].. ?? [facility], in keeping with [facility] guidance, no longer requires face masks for staff, patientsor visitors in most situations. Similiar to time spent indoors at other locations, there is the chance that you were exposed to repiratory viruses during your time with us (such as flu or COVID-19). If you develop symptoms concerning for a viral respiratory infection, please seek testing (and treatment if indicated) from your medical provider or home test kit. ?? You can view and manage your care through the patient portal or by using a health care jeannette of your choosing. [employer] is a website that allows you to securely view your medical information including your hospital discharge summary, office visit summaries, medications and follow-up visits. You can also request appointments, renew medications, and request access to your medical information using a health care jeannette of your choosing, or just ask a question. You can enroll at [email or web address] or register during your next office visit. You have been discharged from [facility], Patient Care Unit: [id number]. If you have any questions regarding these instructions after you leave, please call us and we will be happy to assist you. [facility] Your Care Team Attending Physician Nely CARPENTER, Chel Bustamante Tests Performed Below is a partial list of the tests performed during your hospitalization. You may have had other tests and procedures not included in this list. Please discuss all test results with your provider. CBC w/ Differential Comprehensive Metabolic Panel UA Renal Comp US US Abdominal Doppler Comp US Pelvic Doppler Comp?-- Results Pending -- US Pelvic Non-Ob Ltd or F/U You will be contacted within 72 hours with your results. Primary Care Provider Josefina CARPENTER, Daniella Payton Advance Directive Health Care Proxy on File No Discharge Vitals Temperature: 98.2 DegF Respiratory Rate: 18 br/min Systolic Blood Pressure: 136 mm Hg Diastolic Blood Pressure: 73 mm Hg Oxygen Saturation: 99 % Studies Pending All tests and labs ordered during this hospital stay have been completed unless listed below. Please discuss all pending results with your provider listed above in these instructions. ?? US Pelvic Doppler Comp Urine Culture What to do next Instructions From Your Doctor Discharge Orders Scheduled Follow-Up Appointments Sunday 10:40 AM EST ?? With: Ermelinda HANNAH, Jesi Wylie Where: [facility] [address] [place] [id number]- Status: Pending Sunday 1:00 PM EST ?? With: Fawn Rodriguez CNM Where: [facility] [address] [place] [id number]- Status: Pending Sunday 11:20 AM EST ?? With: Fawn Rodriguez CNM Where: [facility] [address] [place] [address]- Status: Pending You Need to Schedule the Following Appointments Follow Up with??[facility] When:??02/13/2023 10:40 AM EST Why: Call office with any questions or??concerns prior to that time Where: [address] [facility], [place] [address]- Discharge Medications CONSTANZA CHRISTINE :1995 Visit Date:01/25/2023 Medications: Please continue your medications until treatment is completed or stopped by your provider. Medications not listed below should be discontinued. Discuss any questions related to medications with your provider. What How Much When Why Instructions Next Dose New Acetaminophen (Tylenol 325 mg oral capsule) 2 capsule Oral Every 4 hours as needed for as needed for pain Pickup at [facility]/pharmacy #[id number] Unchanged Aspirin (aspirin 81 mg oral delayed release tablet) See instructions 2 tablet By Mouth Daily at bedtime ?? Unchanged Doxylamine (Unisom 25 mg oral tablet) See instructions Nausea/vomiting in take 1 tablet by mouth at bedtime ?? Unchanged Metoclopramide (Reglan 5 mg oral tablet) See instructions Nausea/vomiting in 1 tablet By Mouth as needed up to 3 times daily ?? Unchanged Multivitamin, (M-Mariela Plus oral tablet) 1 tab(s) Oral Daily Unchanged Pyridoxine (pyridoxine 25 mg oral tablet) 1 tab(s) Oral 3 times a day as needed for Nausea & Vomiting Nausea/vomiting in Pharmacy Information [facility]/pharmacy #[id number]: [address], [place] [id number] [phone] Test Results Below is a partial list of the most recent Laboratory test results done prior to this discharge. You may have had other tests and procedures not included in this list. Please discuss all test resultswith your provider. CBC w/ Differential (01/25/2023) ???WBC - 8.3 k/mm3???RBC - 4.36 m/mm3???Hgb - 12.5 Gm/dL???Hct - 37.3 %???MCV - 85.6 femtoliters???MCH - 28.7 pg???MCHC - 33.5 g/dL???Platelet Count - 303 k/mm3???RDW-SD - 39.0 femtoliters???MPV - 10.0 femtoliters???Nucleated RBC (Automated) - 0.0 #/100 WBC'S???Abs. NRBC - 0.0 k/mm3???Abs. Neut - 6.1 k/mm3???Abs. Lymph - 1.7 k/mm3???Abs. Whitley - 0.4 k/mm3???Abs. Eo - 0.2 k/mm3???Abs. Baso - 0.0 k/mm3???Neut % - 72.9 %???Lymph % - 19.8 %???Whitley % - 4.7 %???Eos % - 2.2 %???Baso % - 0.2 %???Imm Gran - 0.2 %???Abs. Imm Gran - 0.0 k/mm3 Comprehensive Metabolic Panel (01/25/2023) ???Sodium - 136 mmol/L???Potassium - 3.6 mmol/L???Chloride - 104 mmol/L???Bicarbonate Level - 22 mmol/L???Anion Gap - 10???Glucose Level - 100 mg/dL???BUN - 3 mg/dL???Creatinine-Blood - 0.4 mg/dL???Estimated GFR Creatinine - 137 ML/MIN/1.73 M2???Calcium - 9.0 mg/dL???Protein, Total - 6.1 Gm/dL???Alb umin - 3.9 Gm/dL???AG Ratio - 1.8???Alkaline Phosphatase - 61 units/L???AST (SGOT) - 8 units/L???ALT (SGPT) - 9 units/L???Bilirubin, Total - 0.3 mg/dL UA (01/25/2023) ???Appear/Color, Urine - YELLOW???Specific [place], Urine - 1.022???pH, Urine - 8.0???Albumin, Urine - 1+???Glucose, Urine - NEGATIVE???Ketones, Urine - NEGATIVE???Bilirubin, Urine - NEGATIVE???Hemoglobin, Urine - NEGATIVE???Nitrite, Urine - NEGATIVE???Leukocyte, Urine - NEGATIVE???Urobilinogen - NORMAL???WBC's, Urine - 1 /HPF???RBC's, Urine - NONE SEEN???Bacteria - SLIGHT???Squamous Epith - 5 /HPF???Amorphous Crystals - MODERATE???Mucus - SLIGHT Allergies (NKA means No Known Allergies) ibuprofen Problems Active Problems??(8) Anxiety and depression?? GBS carrier?? History of marijuana use?? Maternal varicella, non-immune?? Obesity? Rubella non-immune status, antepartum?? Severe obesity (BMI 35.0-39.9) with comorbidity?? Education Materials Below is the list of Educational Leaflet Providered with your Discharge Instructions. Abdominal Pain and Early ?? Adapting to : Second Trimester?? Valuables and Belongings I fully understand and agree that [facility] accepts no responsibility for all my personal property including clothing, toilet articles, radios, jewelry, dentures, hearing aids, rings, money, or any other property that is in my possession or is brought to me after admission. I understand certain valuables may be placed in a hospital safe for a short period of time. I understand that the hospital is not liable for loss or damage due to accident, fire, or other natural occurrence while said property is in the safe. I accept full responsibility for any personal property that I keep with me, and will not hold the hospital responsible in case of loss or disappearance. I acknowledge that i have been encouraged to send valuables and belongings home. ? Other Discharge Information ? Pulmonary Rehab Status?? Pulmonary Rehab Discharge Status?? Respiratory Rate: 18 br/min ? Common Emergency Awareness Tips IS IT A STROKE? Act FAST and Check for these signs: FACE Does the face look uneven? ARM Does one arm drift down? SPEECH Does their speech sound strange? TIME Call at any sign of stroke ?? Heart Attack Signs Chest discomfort: Most heart attacks involve discomfort in the center of the chest and lasts more than a few minutes, or goes away and comes back. It can feel like uncomfortable pressure, squeezing, fullness or pain. Discomfort in upper body: Symptoms can include pain or discomfort in one or both arms, back, neck, jaw or stomach. Shortness of breath: With or without discomfort. Other signs: Breaking out in a cold sweat, nausea, or lightheaded. Remember, MINUTES DO MATTER. If you experience any of these heart attack warning signs, call to get immediate medical attention! ?? Smoking can increase your chances of developing chronic health problems and can cause harmful effects to other family members in your house. If you smoke, you are strongly encouraged to quit. Please call [facility] makerist Link at [phone] or [phone]) or log in to [email or web address] for referrals to smoking cessation programs. ?? 411 Suicide & Crisis Lifeline is available 30/10 if you or someone you know needs to find a reason to keep living. By calling 693 you'll be connected to a skilled, trained counselor at a crisis center in your area. INPATIENT DISCHARGE INSTRUCTIONS SIGNATURE PAGE CONSTANZA CHRISTINE Location:[facility] Registration Date and Time:01/25/2023 07:54 EDT Primary Care Physician: Josefina CARPENTER, Daniella Payton, Attending Physician: Nely CARPENTER, Chel Bustamante, I CONSTANZA CHRISTINE, have received the above patient education materials/instructions and have verbalized understanding. If ambulance or transport services are being used I further acknowledge being given a choice of service. ?? If you need to contact me, please call me at this number: . Patient/Grade Foreman Name: Patient/Grade Foreman Signature: Relationship to Patient: Witness Name/Signature: Date: * Ryanne Bradshaw RN: PERFORM Event Display: Patient Education Leaflets Authored Date: [id number] Abdominal Pain and Early ?? [id number] Abdominal Pain and Early The tests you had show that you're . But the exact cause of your pain isn???t clear. Some pain and bleeding are common early in . Often they stop, and you can go on to have a normal and baby. Other times the pain or bleeding can be signs of a??miscarriage??or??ectopic . An ectopic is a very serious problem. At this time, it's unclear if your will continue normally, if you'll have a miscarriage, or if you could have an ectopic pregnan cy. Below is some information about this. Miscarriage At this time, it's not known if you'll have a miscarriage, or if things will clear up and your will continue normally. This is an emotionally difficult time. But??it's important to understand that miscarriages are common. About 1 or 2 out of every [address] Some end even before a person knows they're . This happens for many reasons. Often the cause is never found. But it???s important that you know it's not your fault. It didn???t happen because you did anything wrong. Having sex or exercising doesn't cause a miscarriage. These activities are usually safe unless you have pain or bleeding. Or unless your healthcare provider tells you to stop. Even minor falls won???t cause a miscarriage. Miscarriages happen because things weren't developing as they were supposed to. No medicine can prevent a miscarriage. ?? Ectopic In a normal , the fertilized egg attaches to the wall of the uterus. In an ectopic or tubal , the fertilized egg attaches outside the uterus, usually in the fallopian tube. In very rare cases, the egg attaches to an ovary or somewhere else in the belly (abdomen). An ectopic is much less common than a miscarriage. But it's very serious. The baby can't survive. And as itgrows it can burst (rupture) the fallopian tube. This can cause internal bleeding and even . Risk factors for an ectopic are: ??? A past ectopic ??? Pelvic inflammatory disease (PID) ??? Endometriosis ??? Smoking ??? An IUD ?? Additional tests It's not known what???s causing your symptoms. So you'll need more tests to figure out what the problem is. You may need the tests below. Ultrasound An ultrasound can often find a normal as early as 4 to 5 weeks along. If the ultrasound does not show the baby inside the uterus, it means 1 of these things: ??? You have a normal less than 4 weeks along ??? You are having or recently had a miscarriage ??? You have an ectopic hormone An HCG test measures the amount of a hormone in your blood. Comparing today's test resultto a repeat test in 2 days will show if you have a normal . Laparoscopy This is a type of surgery. The healthcare provider will put a tube with a light inside your belly to look directly at your pelvic organs. This test is used when it's not safe to wait 2 days for bloodtest results. ?? Important information If you do have an ectopic , there's a small chance that the growing fetus can tear the fallopian tube. This can cause severe internal bleeding. If this happens, you may have: ??? Sudden severe pain in your lower belly ??? Vaginal bleeding ??? Weakness, dizziness, and sometimes fainting If any of these symptoms occur: ??? Call 911 or return right away to the hospital. ??? Don't drive yourself. ??? Don't go to your healthcare provider's office or to a clinic. Go to the hospital. ?? Home care Follow these guidelines to help care for yourself at home: ??? Rest until your next exam. Don???t do any strenuous activities. ??? Eat a light diet with foods that are easy to digest. ??? Don???t have sex until your healthcare provider says it???s OK. ?? Follow-up care Follow up with your healthcare provider, or as advised. If you were told to have a repeat blood test in 2 days, it???s important to get it done. If you had an X-ray or ultrasound, a radiologist??will??review??it. You'll be told of any new findings that may affect your care. ?? Call 911 Call 911 if you have any of these: ??? Severe pain and very heavy bleeding ??? Severe lightheadedness, passing out, or fainting ??? Rapid heart rate ??? Trouble breathing ??? Confused or having trouble waking up ?? When to get medical care Call your healthcare provider right away if any of these occur: ??? The pain in your belly gets worse, either suddenly or slowly. ??? You're dizzy or weak when you stand. ??? You have heavy vaginal bleeding. This means soaking 1 pad an hour for 3 hours. ??? You have vaginal bleeding for more than 5days. ??? You have repeated vomiting or diarrhea. ??? The pain in your belly moves to the lower right. ??? You have blood in your vomit or bowel movements. This will be dark red or black. ??? You have a fever of 100.4??F (38??C) or higher, or as advised by your provider. ?? Last Reviewed Date: 2021 ?? 2574-1587 The [employer]. All rights reserved. This information is not intended as a substitute for professional medical care. Always follow your healthcare professional's instructions. ?? * Ryanne Bradshaw RN: PERFORM Event Display: Patient Education Leaflets Authored Date: [id number] Adapting to : Second Trimester ?? 10380 Adapting to : Second Trimester Keep up the healthy habits you started in your first trimester. You might be a little more tired than normal. So plan your day wisely. Look at the tips below and choose the ones that suit your lifestyle. Note If you have any questions, talk with your healthcare provider. ?? If you work If you can, adjust your work with your employer to fit your needs. Try these tips: ??? If you standfor long periods, find ways to do some tasks while sitting. Also, try to stand with 1 foot resting on a low stool or ledge. Shift your weight from foot to foot often. Wear low-heeled shoes. ??? If you sit, keep your knees level with your hips. Rest your feet on a firm surface. Sit tall with supportfor your low back. ??? If you work long hours, ask about adjusting your schedule. Try taking shorter breaks more often. ?? When you travel The second trimester may be the best time for any travel. Talk to your healthcare provider about any special plans you may need to make. Always: ??? Wear a seat belt. Fasten the lap part under your belly. Wear the shoulder part also. ??? Take breaks often during long trips by car or plane. Move around to stretch your legs. ??? Drink plenty of fluids on flights. The air in plane cabins is very dry. ??? Stay out of hot climates or high altitudes if you are not used to them. ??? Stay away from places where the food and water might make you sick. ??? Make sure you are up-to-date on all vaccines, including the flu vaccine. This is especially important when traveling overseas. ?? Taking time to relax Find time to rest and relax at work or at home: ??? Take short time-outs daily. Do relaxation exercises. ??? Breathe deeply during stressful times.??? Try not to take on too much. Plan tasks for times when you have the most energy. ??? Take naps when you can. Or just sit and relax. ??? After week 16, don't lie on your back for more than a few minutes. Instead, lie on your side. Switch sides often. ?? Having sex Unless your healthcare provider tells you otherwise, there is no reason to stop having sex now. Blood supply increases to the pelvic area in the second trimester. Because of this, sex might be more enjoyable. Try different positions and see what???s best. Also talk with your partner about any changes in desire. Spotting may happen after sex. Let your healthcare provider know if there is heavy bleeding. ?? Keeping your environment safe You can still clean your house and use scented products. Just take some simple precautions: ??? Wear gloves when using cleaning fluids. ??? Open windows to let in fresh air. Use a fan if you paint. ??? Stay away from secondhand smoke. ??? Don???t breathe fumes from nail kenyan, hair spray, cleansers, or other chemicals. ?? How daily issues affect your health Many things in your daily life impact your health. This can include transportation, money problems,housing, access to food, and child care aide. If you can???t get to medical appointments, you may not receive the care you need. When money is tight, it may be difficult to pay for medicines. And living far from a grocery store can make it hard to buy healthy food. If you have concerns in any of these or other areas, talk with your healthcare team. They may know of local resources to assist you. Or they may have a staff person who can help. ?? Last Reviewed Date: 2020 ?? 8029-2438 The [employer]. All rights reserved. This information is not intended as a substitute for professional medical care. Always follow your healthcare professional's instructions. ?? Patient Care team information Care Team Personnel Name: Josefina CARPENTER, Daniella Payton Position: [facility] Outreach Member Role: PCP Address: Address: [address] [place] [id number] Name: Ryanne Bradshaw RN Position: [facility] OB RN Member Role: Patient Care Provider Care Team Related Persons Name: RUPA CARRILLO Address: home [address] [address] Name: RODGER CARRILLO Name: MARTINEZ CHRISTINE Address: home [address] [place] [address] Name: SERINA CHRISTINE Address: [id number] Address: home [address], [place] [address]
--- OUTSIDE RECORDS SUMMARY | 2023-03-17 11:05 | XMS_ITS | Continuity of Care Document ---
Author Name Unknown Organization [facility] ter Address [address] [place] [id number]- Care Team Providers Care Roof Promenade Tile Setter Name Role Phone Josefina CARPENTER, Daniella Payton Primary Care Physician Encounter [facility] [place] Date(s): 02/08/23 - 02/09/[address] [address] Discharge Disposition: A-D/C Home Attending Physician: Veronika Mccarty DO Admitting Physician: Veronika Mccarty DO Referring Physician: Veronika Mccarty DO Allergies, Adverse Reactions, Alerts Substance Reaction Severity [...] Replace Required Details, Route to Pharmacy Electronically, [facility]/pharmacy #[id number], Partial fill upon patient re... Start Date: 01/16/23 Status: Ordered M- Plus oral tablet 1 tablet, By Mouth, Daily, # 30 tablet, 9 Refills, Maintenance, 12/26/22 9:24:00 EDT, [facility]/pharmacy #[id number], Partial fill upon patient request [...] cm... Start Date: 01/16/23 Status: Ordered Reglan 10 mg oral tablet 1 tablet = 10 mg, By Mouth, 3 times a day, PRN Nausea & Vomiting, # 28 tablet, 5 Refills, Maintenance, 02/09/23 8:47:00 EDT, [facility]/pharmacy #[id number], Partial fill upon patient request if the prescription is for a schedule II opioid drug., 166, cm, 01/16/23... 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 History of marijuana use Confirmed Active Nausea and vomiting in Confirmed Active Obesity Confirmed Active Rubella non-immune status, antepartum Confirmed Active Severe obesity (BMI 35.0-39.9) with comorbidity Confirmed Active Maternal varicella, non-immune Confirmed Active Vital Signs Most recent to oldest [Reference Range]: 1 Oxygen Saturation [94-100 %] 100 % (02/08/23 8:36 PM) Blood Pressure [90-138/55-84 mm Hg] 118/ 55mm Hg (02/08/23 8:36 PM) Respiratory Rate [16-30 br/min] 18 br/mi n (02/08/23 8:36 PM) Temperature [96.8-100.4 DegF] 98.4 DegF (02/08/23 8:36 PM) Mode of Delivery (Oxygen) Room air (02/08/23 8:36 PM) Blood pressure sites Arm, left (02/08/23 8:36 PM) Temperature Route Oral (02/08/23 8:36 PM) Social History Social History Type Response Smoking Status Former smoker, quit more than 30 days ago; Other: Quit when preg with son; entered on: 12/26/22 Sex Note * Salma Schmidt RN R: PERFORM Event Display: Discharge/Transfer Note Hospital Authored Date: [id number] Nursing Discharge Note Entered On: 02/09/2023 6:41 EDT Performed On: 02/09/2023 6:40 EDT by Salma Schmidt RN Nursing Discharge Note 2 Discharge Time : 02/09/2023 6:39 EDT Discharge Level of Care at Discharge : Home/Detention/Foster Care Patient Left Unit Via : Ambulatory Patient Accompanied Off Unit with : Other: self DC Instructions Provided & Signed by Pt : Yes Patient Understands D/C Instructions : Yes Verbalized Understanding of D/C Plan By : Patient Patient Instructions Discharge Signed : Yes Did Pt have Specialty Bed or Wound Vac : No Salma Schmidt RN - 02/09/2023 6:40 EDT * Event Display: Discharge/Transfer Note Hospital Authored Date: [id number] * Salma Schmidt RN: PERFORM Event Display: Patient Education/Instruction Authored Date: [id number] Inpatient Adult Discharge Instructions [address] [address] Name: CONSTANZA CHRISTINE : 1995 Visit: 02/08/2023 19:57:00 Current Date: 02/09/2023 03:41 Account: [id number] Inpatient Adult Discharge Instructions We would like [...] and their families. Surveys are administered by [employer] ?? If further treatment with your primary care physician or another doctor is recommended, it is important for you to keep the appointment. Call your primary care physician or return to the Emergency Department immediately if your condition worsens, fails to improve, or new symptoms develop. If you need to find a doctor, you can call [facility] VYou Link for a referral at [phone] or toll free at [phone]) or log in to [email or web address].. ?? [facility], in keeping with [facility] guidance, no longer requires face masks for [...] a health care jeannette of your choosing. [employer] is a website that allows you to securely view your medical information including your hospital discharge summary, office visit summaries, medications and follow-up visits. You can also request appointments, renew medications, and request access to your medical information using a health care jeannette of your choosing, or just ask a question. You can enroll at [email or web address] or register during your next office visit. You have been discharged from [facility], Patient Care Unit: [id number]. If you have any questions regarding these instructions after you leave, please call us and we will be happy to assist you. [facility] Your Care Team Attending Physician Veronika Mccarty DO Tests Performed Below is a partial list of the tests performed during your hospitalization. You may have had other tests and procedures not included in this list. Please discuss all test results with your provider. Primary Care Provider Josefina CARPENTER, Daniella Payton Advance Directive Health Care Proxy on File No Discharge Vitals Temperature: 98.4 DegF Respiratory Rate: 18 br/min Systolic Blood Pressure: 118 mm Hg Diastolic Blood Pressure: 55 mm Hg Oxygen Saturation: 100 % Studies Pending All tests and labs ordered during this hospital stay have been completed unless listed below. Please discuss all pending results with your provider listed above in these instructions. ?? No incomplete studies found What to do next Instructions From Your Doctor Discharge Orders Scheduled Follow-Up Appointments Sunday 10:40 AM EST ?? With: Ermelinda HANNAH, Jesi Wylie Where: [facility] [employer] [address] [place] [address]- Status: Pending Sunday 1:00 PM EST ?? With: Fawn Rodriguez CNM Where: [address] [address]- Status: Pending Sunday 11:20 AM EST ?? With: Fawn Rodriguez CNM Where: [facility] [employer] [address] [place] [address]- Status: Pending You Need to Schedule the Following Appointments Follow Up with??[facility] [phone] Why: please keep all upcoming director of residence life appts Discharge Medications NANCI CONSTANZA :1995 Visit Date:02/08/2023 Medications: Please continue your medications until treatment is completed or stopped by your provider. Medications not listed below should be discontinued. Discuss any questions related to medications with your provider. What How Much When Why Instructions Next Dose Unchanged Acetaminophen (Tylenol 325 mg oral capsule) 2 capsule Oral Every 4 hours as needed for as needed for pain Unchanged Aspirin (aspirin 81 mg oral delayed [...] needed for Nausea & Vomiting Nausea/vomiting in Test Results Below is a partial list of the most recent Laboratory test results done prior to this discharge. You may have had other tests and procedures not included in this list. Please discuss all test resultswith your provider. Allergies (NKA means No Known Allergies) ibuprofen Problems Active Problems??(8) Anxiety and depression?? GBS carrier?? History of marijuana use?? Maternal varicella, non-immune?? Obesity? Rubella non-immune status, antepartum?? Severe obesity (BMI 35.0-39.9) with comorbidity?? Education Materials Below is the list of Educational Leaflet Providered with your Discharge Instructions. Nutrition During ?? Hyperemesis Gravidarum?? Comfort Tips During ?? Adapting to : Second Trimester?? Valuables and Belongings I fully understand and agree that [facility] accepts no responsibility for all my [...] are strongly encouraged to quit. Please call [facility] VYou Link at [phone] or [phone] ([phone]) or log in to [email or web address] for referrals to smoking cessation programs. ?? 157 Suicide & Crisis Lifeline is available 30/10 if you or someone you know needs to find a reason to keep living. By calling 575 you'll be connected to a skilled, trained counselor at a crisis center in your area. INPATIENT DISCHARGE INSTRUCTIONS SIGNATURE CARMEN CHRISTINECONSTANZA Location:[facility] Registration Date and Time:02/08/2023 19:57 EDT Primary Care Physician: Daniella Rocha MD, Attending Physician: Veronika Mccarty DO, I CONSTANZA CHRISTINE, have received the above patient education materials/instructions and have verbalized understanding. If ambulance or transport services are being used I further acknowledge being given a choice of service. ?? If you need to contact me, please call me at this number: . Patient/Produce Service Team Member Name: Patient/Produce Service Team Member Signature: Relationship to Patient: Witness Name/Signature: Date: * Salma Schmidt RN: PERFORM Event Display: Patient Education Leaflets Authored Date: [id number] Nutrition During ?? [address] Nutrition During Having a healthy baby depends mostly on you. What you eat matters to your baby and your health. During , you will likely need about 300 more calories per day than??before you became . Each day, try to eat the number of servings listed here for each food group. In addition, cut downon salt and caffeine. Limit the amount of sweets and high-fat foods you eat.??Don???t smoke or drink alcohol. Important: See your healthcare provider as often as asked. If you have any questions, be sure to ask them. Fruits Vegetables Grains & cereals* Fats & oils 2 cups Examples of 1-cup??servings: 1 medium apple 1 medium orange 1 medium banana 1??cup chopped fruit 1 cup 100% fruit juice (pasteurized) 1/2 cup dried fruit 2-1/2 to 3 cups?? Examples of 1 servin??cups raw,??leafy greens 1??cup raw or cooked cut-up vegetables 1??cup 100% vegetable juice (pasteurized) 6 to 8 ounces Examples of 1-ounce servings: 1 slice bread 1/2 cup cooked rice 1/2 cup cooked cereal 1/2 cup pasta 1??ounce cold cereal 6 to 8 teaspoons Dairy Protein Fluids ?? 3 cups Examples of 1-cup servings: 1 cup milk 1 cup yogurt 1-1/2 ounces natural cheese 2 ounces processed cheese 5 to??6-1/2 ounces Examples of 1-ounce servings: 1 egg 1??ounce of lean meat, poultry, or fish 1/4 cup cooked??beans 1??tablespoon peanut butter 1/2 ounce nuts 8 or more 8-ounce glasses Examples: Water Mineral water Clear soups, broth ?? *Note: Choose whole grains whenever possible. Note:??Try to choose low-fat foods; stay away from soft cheeses and unpasteurized milk. Notes:??Don't eat raw or undercooked meats, eggs, seafood, fish, or shellfish.??Some types of fish, such as shark, swordfish, and dunia mackerel, should not be eaten during .??Don't eat hot dogs, lunch meats, or cold cuts unless heated to steaming just before being served.??Ask your healthcare provider about safe choices. supplements A supplement is a pill that you take daily during . It helps make sure you???re getting the right amount of certain nutrients that are important to your baby. Ask your healthcare provider to help you choose the best one for you. Important nutrients during include: ??? Folic acid.??It's best to start taking this supplement 1 month before you start trying to get . Folic acid helps prevent certain problems in your baby. During , you need to take 400 micrograms (mcg) of folic acid every day for the first 2 to 3 months after conception. After that, 600 mcg is needed for a growing baby and placenta. ??? Iron, calcium, and vitamin D.??You may also be advised to take these supplements during . They help keep you and your baby healthy. Take them at different times because calcium makes it hard for the body to absorb iron. Taking iron with orange juice helps to increase its absorption. ?? Last Reviewed Date: 2022 ?? 5964-1861 [employer]. All rights reserved. This information is not intended as a substitute for professional medical care. Always follow your healthcare professional's instructions. ?? * Brayan DIETRICH, Salma Zendejas: PERFORM Event Display: Patient Education Leaflets Authored Date: [id number] Hyperemesis Gravidarum ?? [id number] Hyperemesis Gravidarum Upset stomach (nausea) and vomiting are common in . It is often called morning sickness. But it can happen at any time of day. Severe nausea and vomiting that doesn???t let up is not normal.This is known as hyperemesis gravidarum. It may develop around the 5th week and last until the 16thweek of . In some women, it may last longer. It can cause too much fluid loss (dehydration). And it can cause weight loss. This can be dangerous for the mother and baby.?? Morning sickness may be caused by an increase in some hormone levels. It is not clear why it???s more severe in some people. It may be more likely if you are carrying twins or more. You may need sometests. These are to check for other health conditions that can cause severe nausea and vomiting. The focus of treatment for severe morning sickness is to: ??? Ease your symptoms ??? Prevent weight loss ??? Prevent too much fluid loss (dehydration) Follow the advice below carefully. If your symptoms don't get better with home care, you may need to stay in the hospital. In the hospital, you may get IV (intravenous) fluids and medicines. In very severe cases, you may need more time in the hospital. You may need IV nutrition or tube feeding. If you need these, your healthcare provider will tell you more. Home care Diet ??? Keep a list of the foods you eat and how they affect your symptoms. Don't eat foods that trigger your symptoms. ??? Eat??small meals often rather than 3 large meals. This can help keep your stomach from being empty. An empty stomach??can make nausea worse. ??? Choose foods that are high in carbohydrates. Eating foods high in protein may also help. Limit greasy or spicy foods. ??? Before getting out of bed in the morning, try eating crackers or dry toast. This may help settle your stomach. ??? Drink cold, clear liquids. Drink small amounts of liquids with electrolytes, such as sports drinks. Medicine If needed, your healthcare provider may prescribe medicines to help ease nausea and vomiting. Your provider may suggest vitamin B6 and dominga. Don???t use any eudx-qgh-vflcnus medicines or home remedies without talking with your provider first. ?? Follow-up care Follow up with your healthcare provider as advised. ?? When to get medical care Call your healthcare provider right away if you have any of these: ??? Dry mouth and extreme thirst??? Dark urine or small amounts of urine ??? Dizziness, weakness, or fainting ??? Vomiting that won???t stop ??? Inability to keep down liquids ??? Frequent diarrhea ??? Weight loss or no weight gainover a 2-week period ??? Severe constant pain in the lower right abdomen ??? Fever of 100.4??F (38??C) or higher, or as advised ?? Last Reviewed Date: 2021 ?? [employer]. All rights reserved. This information is not intended as a substitute for professional medical care. Always follow your healthcare professional's instructions. ?? * Brayan DIETRICH, Salma Zendejas: PERFORM Event Display: Patient Education Leaflets Authored Date: [id number] Comfort Tips During ?? [address] Comfort Tips During can bring discomfort of different kinds. Below are tips for ways to feel better.??Talk with your??healthcare provider before using pain-relieving medicine at any time during your . First trimester tips Easing nausea ??? Get up slowly. Eat a few unsalted crackers before you get out of bed. ??? Stay away from smellsthat bother you. ??? Eat small,??bland, low-fat, high- protein meals at frequent intervals. ??? Sip on water, weak??tea, or clear soft drinks, like dominga anya.??Eat ice chips. ??? Try taking vitamin B6. Coping with fatigue ??? Take catnaps when you can. ??? Get regular exercise. ??? Accept help from others. ??? Practice good sleep habits, like going to bed and getting up at the same time each day. Use your bed only forsleep and sex. Calming mood swings ??? Talk about your feelings with others, including other mothers. ??? Limit sugar, chocolate, and caffeine. ??? Eat a healthy diet. Don???t skip meals. ??? Get regular exercise. Soothing headaches ??? Get fresh air and exercise. ??? Relax and get enough rest. ??? Check with your healthcare provider before taking any pain medicines. ?? Second trimester tips ??? To limit ankle swelling, sit with your feet raised or wear support hose. ??? If you have pain in your groin and stomach??(round ligament pain), don't make sudden twisting movements with your body. ??? For leg cramps, flexing your foot often brings immediate relief. Also try massaging your calf in long, downward strokes, or stretching your legs before going to bed. Get enough exercise and wear shoes with flexible soles. Eat foods rich in calcium. ?? Third trimester tips Reducing heartburn ??? Eat small, light meals throughout the day rather than 3 large ones. ??? Sleep with your upper body raised 6 inches. Don???t lie down until 2 hours after you eat. ??? Don't eat greasy, fried, or spicy foods. ??? Don't have citrus fruits or juices. Treating constipation ??? Eat foods high in fiber, such as whole-grain foods, and fresh fruit and vegetables. ??? Drink plenty of water. ??? Get regular exercise. ??? Ask about your healthcare provider about medicines that have docusate or psyllium. Taking care of your breasts ??? Don't use harsh soaps or alcohol, which can make your skin too dry. ??? Wear nursing bras. Theyprovide more support than regular bras and can be used after if you breastfeed. Getting a good night???s sleep ??? Take a warm shower before bed. ??? Sleep on a firm mattress. ???Lie on your side with one leg crossed over the other. ??? Use pillows to support your arms, legs, and belly. ?? Last Reviewed Date: 2022 ?? 7266-8929 [employer]. All rights reserved. This information is not intended as a substitute for professional medical care. Always follow your healthcare professional's instructions. ?? Patient Care team information Care Team Personnel Name: Daniella Rocha MD Position: S Outreach Member Role: PCP Address: Address: [address] [place] [address]- [place] Care Team Related Persons Name: RUPA CARRILLO Address: home [address], [place] [address] Name: RODGER CARRILLO Name: MARTINEZ CHRISTINE Address: home [address], [place] [address] Name: SERINA CHRISTINE Address: [address] Address: home [address], [place] [address]
--- OUTSIDE RECORDS SUMMARY | 2023-03-17 11:05 | XMS_ITS | Continuity of Care Document ---
Author Name Unknown Organization [facility] Address [address] [place] [address]- Care Team Providers Care Insurance Sales Associate Name Role Phone Josefina CARPENTER, Daniella Payton Primary Care Physician En[place] [facility] [place] Date(s): 12/21/22 - 01/20/23 [facility] [address] [place], [place] [address] Allergies, Adverse Reactions, Alerts Substance [...] Replace Required Details, Route to Pharmacy Electronically, [facility]/pharmacy #[id number], Partial fill upon patient re... Start Date: 01/16/23 Status: Ordered clotrimazole 1% vaginal cream with applicator 1 application, Vaginally, Daily at bedtime, for 7 days, # 45 Gm, 0 Refills, Acute 01/25/23 10:39:00EDT, 01/18/23 10:39:00 EDT, Cream, [facility]/pharmacy #[id number], Partial fill upon patient request if the prescription is for a schedule II opioid drug., 1 appli... Start Date: 01/18/23 Stop Date: 01/25/23 Status: Ordered M-Mariela Plus oral tablet 1 [...] cm, ... Start Date: 01/16/23 Status: Ordered Unisom 25 mg oral tablet [...] S Outreach Member Role: PCP Address: Address: [address] [place] [address]- Care Team Related Persons Name: RUPA CARRILLO Address: home [address] [address] Name: RODGER CARRILLO Name: MARTINEZ CHRISTINE Address: home [address] [address] Name: SERINA CHRISTINE Address: [address] Address: [address] [place] [address]
--- OUTSIDE RECORDS SUMMARY | 2023-03-17 11:05 | XMS_ITS | Continuity of Care Document ---
Author Name Unknown Organization [facility] Address [address] [place] [address]- Care Team Providers Care Team Lead Name Role Phone Josefina CARPENTER, Daniella Payton Primary Care Physician Encounter [facility] [place] Date(s): 01/02/23 - 02/01/[address] [address]- Allergies, Adverse Reactions, Alerts Substance Reaction Severity [...] Replace Required Details, Route to Pharmacy Electronically, [facility]/pharmacy #[id number], Partial fill upon patient re... Start Date: 01/16/23 Status: Ordered M- Plus oral tablet 1 tablet, By Mouth, Daily, # 30 tablet, 9 Refills, Maintenance, 12/26/22 9:24:00 EDT, [facility]/pharmacy #[id number], Partial fill upon patient request if the prescription is for a schedule II opioid drug., 1 tablet By Mouth Daily, 166, cm, 12/26/22 8:33:00 EDT,... Start Date: 12/26/22 Status: Ordered pyridoxine 25 mg oral tablet 1 tablet = 25 mg, By Mouth, 3 times a day, PRN Nausea & Vomiting, # 100 tablet, 6 Refills, Maintenance, 01/16/23 10:04:00 EDT, Tablet, [facility]/pharmacy #[id number], Partial fill upon patient request if [...] Team Personnel Name: Daniella Rocha MD Position: [facility] Outreach Member Role: PCP Address: Address: [address] [place] [address]- Care Team Related Persons Name: RUPA CARRILLO Address: home [address] [place] [id number] Name: RODGER CARRILLO Name: MARTINEZ CHRISTINE Address: home [address] [address] Name: SERINA CHRISTINE Address: [address] Address: home [address] [address]
--- OUTSIDE RECORDS SUMMARY | 2023-03-17 11:05 | XMS_ITS | Continuity of Care Document ---
Author Name Unknown Organization [facility] Address [address] [place] [address]- Care Team Providers Care Hse Advisor Name Role Phone Daniella Rocha MD Primary Care Physician Encounter [facility] Date(s): 12/05/22 - 01/04/[address] [id number]- [place] Allergies, Adverse Reactions, Alerts Substance Reaction Severity Status ibuprofen Active Immunizations Given and Recorded Vaccine Date Status Refusal Reason Measles/Mumps/Rubella Virus Vaccine 01/16/19 Given tetanus/diphtheria/pertussis, acel(Tdap) 10/24/18 Given Medications M- Plus oral tablet 1 tablet, By Mouth, Daily, # 30 tablet, 9 Refills, Maintenance, 12/26/22 9:24:00 EDT, [facility]/pharmacy #[id number], Partial fill upon patient request if the [...] S Outreach Member Role: PCP Address: Address: [address] [place] [address]- Care Team Related Persons Name: RUPA CARRILLO Address: home [address] [address] Name: RODGER CARRILLO Name: MARTINEZ CHRISTINE Address: home [address] [address] Name: SERINA CHRISTINE Address: [address] Address: home [address] [place] [address] [place]
[2023-03-17 11:09] LABS: Basophils Percent Auto 0.5 % (0-2); Eosinophils Absolute Auto 0.1 X10*3/uL (0.0-0.4); Eosinophils Percent Auto 1.7 % (0-4); Hematocrit 38.2 % (37.0-47.0); Hemoglobin 12.3 g/dl (12.0-16.0); Imm Gran Abs Auto 0.03 X10*3/uL (0.00-0.03); Imm Gran Pct Auto 0.4 % (0.0-0.4); Lymphocytes Absolute Auto 1.9 X10*3/uL (1.2-4.9); Lymphocytes Percent Auto 22.2 % (20-40); Mean Corpuscular HGB Conc 32.2 g/dl (31.0-35.0); Mean Corpuscular Hemoglobin 28.3 pg (27.0-33.0); Mean Corpuscular Volume 87.8 fL (80.0-98.0); Mean Platelet Volume 10.5 fL (9.4-12.3); Monocytes Absolute Auto 0.4 X10*3/uL (0.1-1.2); Monocytes Percent Auto 4.4 % (2-11); Neutrophils Absolute Auto 5.9 x10*3/uL (2.0-8.3); Neutrophils Percent Auto 70.8 % (45-73); Platelet Count 338 X10*3/uL (160-400); Red Blood Count 4.35 X10*6/uL (4.20-5.50); Red Cell Distribution Width 12.3 % (11.0-16.0); White Blood Count 8.4 X10*3/uL (4.8-10.8)
--- NOTE | 2023-03-17 12:07 | PC.NURSE ---
repeat labs obtained and sent to lab. tech bedside obtaining urine at this time. pt remains in no apparent distress. resting comfortably. respirations even and unlabored. call keane placed within reach.
[2023-03-17 12:14] LABS: Anion Gap 11 (12-20); Blood Urea Nitrogen 6 mg/dL (9-16); Carbon Dioxide 21 mmol/L (22-29); Chloride 109 mmol/L (96-108); Creatinine Clr Calc Pharmacy 212.1; Estimated Glomerular Filt Rate > 60; Glucose Random 83 mg/dL (60-115); Potassium 4.2 mmol/L (3.3-5.1); Sodium 137 mmol/L (135-145)
[2023-03-17 12:18] LABS: Appearance Urine Clear; Color Urine Yellow; Glucose Urine UA Negative (Negative); Leukocyte Esterase Urine Negative (Negative); Nitrite Urine Negative (Negative); PH 8.5 (5.0-9.0); Urine Blood Negative (Negative); Urine Ketones Negative (Negative); Urine Protein Negative (Neg-Trace)
[2023-03-17 12:21] LABS: Bacteria Urine None Seen (None Seen); Hyaline Casts Urine 0-2 /LPF (0-2); RBC Urine 0-2 /HPF (0-2); Squamous Epithelial Cell Urine 0-2 /HPF (0-2); WBC Urine 0-5 /HPF (0-5)
== END 2023-03-17 13:09 | disposition home or self-care (01) ==
PROVIDERS: Emergency Provider Emergency Medicine Emergency Medical Services; PCP Internal Medicine
DX: O98.512 Other viral diseases complicating pregnancy, second trimester (principal); U07.1 COVID-19; O99.512 Diseases of the respiratory system complicating pregnancy, second trimester; J06.9 Acute upper respiratory infection, unspecified; R05.9 Cough, unspecified
CPT/HCPCS: 0241U; 36415; 80048; 81001; 85025; 87651; 93005; 96360; 99285

== ENCOUNTER → 2023-03-17 08:04 | Outpatient (BNV) | payer MEDICAID, SELFPAY | PROVIDERS: Emergency Provider Emergency Medicine Emergency Medical Services; PCP Internal Medicine; Visit Provider Internal Medicine | DX: R07.9 Chest pain, unspecified (principal) | CPT/HCPCS: 93010 ==

== ENCOUNTER 2023-10-03 19:33 | Outpatient (REF) | payer MEDICAID, SELFPAY ==
[2023-10-04 06:07] LABS: CT PCR NOT DETECTED (Not Detect.); NG PCR NOT DETECTED (Not Detect.)
[2023-10-04 11:04] LABS: Bacterial Vaginosis PCR NEGATIVE (Negative); Candida Group PCR DETECTED (Not Detect); Candida glab krusei PCR NOT DETECTED (Not Detect); Trichomonas vaginalis PCR NOT DETECTED (Not Detect)
== END 2023-10-03 19:34 | disposition home or self-care (01) ==
LOC: HO.HHCLNP 19:33
PROVIDERS: Visit Provider Student in an Organized Health Care Education/Training Program
DX: N89.8 Other specified noninflammatory disorders of vagina (principal)
CPT/HCPCS: 0352U; 87491; 87591